=== PATIENT | female | born 1955 | race Caucasian/White ===

== ENCOUNTER 2017-04-05 15:04 | Inpatient (IN) | payer OTHER ==
[~2017-04-05] VITALS: Ht 162.6 cm; Wt 54.3 kg
[~2017-04-05 15:04] MED LIST: BACL10TA PO; CARB-114 PO
[2017-04-05 17:01] LABS: BASOPHILS # (AUTO) 0.02 K/uL (0.00-0.20); BASOPHILS % (AUTO) 0.2 % (0.0-2.0); EOSINOPHILS % (AUTO) 0.04 % (1.0-6.0); HEMATOCRIT 41.4 % (36-46); HEMOGLOBIN 14.1 g/dL (12.0-16.0); LYMPHOCYTES # (AUTO) 1.3 K/uL (1.0-4.8); LYMPHOCYTES % (AUTO) 11.4 % (22.0-44.0); MEAN CORPUSCULAR HEMOGLOBIN 32.3 pg (26.0-34.0); MEAN CORPUSCULAR HGB CONC 34.1 G/dL (31.0-37.0); MEAN CORPUSCULAR VOLUME 95 fL (80-100); MONOCYTES % (AUTO) 8.5 % (2.0-9.0); NEUTROPHILS # (AUTO) 8.9 K/uL (1.8-7.7); NEUTROPHILS % (AUTO) 79.9 % (40.0-70.0); PLATELET COUNT (AUTO) 250 K/uL (150-450); RED BLOOD CELL COUNT(AUTO) 4.36 MIL/uL (4.00-5.20); RED CELL DISTRIBUTION WIDTH 12.9 % (11.5-14.5); WHITE BLOOD COUNT (AUTO) 11.2 K/uL (4.5-11.0)
[2017-04-05 17:02] LABS: ANION GAP 10 mmol/L (8-16); CALCIUM, TOTAL 9.1 mg/dL (8.8-10.5); CARBON DIOXIDE 26 mmol/L (22-29); CHLORIDE 103 mmol/L (98-107); CREATININE 0.56 mg/dL (0.60-1.30); GLOMERULAR FILTR. RATE CALC > 60 mL/min (>60); SODIUM SERUM 139 mmol/L (136-145); UREA NITROGEN, BLOOD 26 mg/dL (7-18)
[2017-04-05 17:32] LABS: B-TYPE NATRIURETIC PEPTIDE 153 pg/mL (0-100)
[2017-04-05 17:36] LABS: ALANINE AMINOTRANSFERASE 7 U/L (12-78); ALBUMIN 3.8 g/dL (3.4-5.0); ASPARTATE AMINOTRANSFERASE 91 U/L (15-37); BILIRUBIN,TOTAL 1.1 mg/dL (0.1-1.0); CREATINE KINASE MB 96.3 ng/mL (0-5); TOTAL PROTEIN, SERUM 7.1 g/dL (6.4-8.2)
[2017-04-05 17:37] LABS: CREATINE KINASE, TOTAL 3959 U/L (26-192)
[2017-04-05] MEDS ORDERED: ASPIRIN 325 MG TABLET PO ONE (18:30)
[2017-04-05] MEDS ORDERED: SODIUM CHLORIDE 0.9% 1,000 ML IV ONE ×2 (18:30)
[2017-04-05] MEDS ORDERED: 0.9% SODIUM CHLORIDE 10 ML SYRINGE IVP PRN (18:45)
[2017-04-05] MEDS ORDERED: ONDANSETRON HCL 4 MG/2 ML VIAL IVP PRN (18:45)
[2017-04-05] MEDS ORDERED: ACETAMINOPHEN 325 MG TABLET PO PRN (18:45)
[2017-04-05] MEDS ORDERED: POTASSIUM CHLORIDE 10% 40 MEQ/30 ML LIQUID UDCUP PO ONE (20:30)
[2017-04-05] MEDS ORDERED: POTASSIUM CHL 40 MEQ/D5-0.45NS 1,000 ML IV ONE (20:30)
[2017-04-05 20:37] LABS: APPEARANCE,URINE CLOUDY (CLEAR); GLUCOSE, URINE (UA) NEGATIVE (NEGATIVE); KETONES,URINE TRACE mg/dL (NEGATIVE); LEUKOCYTE ESTERASE ,URINE LARGE (NEGATIVE); OCCULT BLOOD,URINE LARGE (NEGATIVE); PROTEIN,URINE SEE CONFIRM (NEGATIVE)
[2017-04-05 20:52] LABS: ADD UA MICROSCOPIC YES; SULFOSALICYLIC ACID,URINE 1+ (Negative); WBC,URINE 26-50 /HPF (0-5)
[2017-04-05 20:55] LABS: SQUAMOUS EPITHELIAL CELL,UR Moderate /LPF (None Seen)
[2017-04-05] MEDS: DOCUSATE SODIUM 100 MG CAPSULE PO SCH (21:00)
[2017-04-05] MEDS ORDERED: MAGNESIUM HYDROXIDE SUSPENSION 30 ML UDCUP PO PRN (21:00)
[2017-04-05] MEDS ORDERED: ALBUTEROL SULFATE 2.5 MG/0.5 ML NEB SOLUTION NEB PRN (21:00)
[2017-04-05 21:02] VITALS: BP 114/78
[2017-04-05] MEDS ORDERED: POTASSIUM CHLORIDE 20 MEQ ER TABLET PO PRN (21:15)
[2017-04-05] MEDS: OxyCODONE HCL/ACETAMINOPHEN 5-325 MG TABLET PO PRN (22:21)
[2017-04-05] MEDS: HEPARIN SODIUM,PORCINE 5,000 UNITS/ML VIAL SQ SCH (22:22)
[2017-04-05] MEDS ORDERED: CARBIDOPA/LEVODOPA 25-100 MG TABLET PO ONE (22:30)
[2017-04-05] MEDS: SODIUM CHLORIDE 0.9% 1,000 ML IV SCH (23:28)
[2017-04-05] MEDS: CefTRIAXone 1 GM/DEXTROSE 50 ML IV SCH (23:37)
[2017-04-05 23:39] VITALS: BP 117/69
[2017-04-06] MEDS ORDERED: PNEUMOCOCCAL VACCINE POLYVALENT 0.5 ML VIAL [PPSV23] IM ONE (01:30)
[2017-04-06 04:22] VITALS: BP 106/62
[2017-04-06 05:30] LABS: BASOPHILS # (AUTO) 0.04 K/uL (0.00-0.20); BASOPHILS % (AUTO) 0.4 % (0.0-2.0); EOSINOPHILS # (AUTO) 0.04 K/uL (0.00-0.70); EOSINOPHILS % (AUTO) 0.46 % (1.0-6.0); HEMATOCRIT 34.4 % (36-46); HEMOGLOBIN 11.7 g/dL (12.0-16.0); LYMPHOCYTES # (AUTO) 1.4 K/uL (1.0-4.8); LYMPHOCYTES % (AUTO) 14.2 % (22.0-44.0); MEAN CORPUSCULAR HEMOGLOBIN 32.7 pg (26.0-34.0); MEAN CORPUSCULAR HGB CONC 33.9 G/dL (31.0-37.0); MEAN CORPUSCULAR VOLUME 96 fL (80-100); MONOCYTES # (AUTO) 0.8 K/uL (0.1-1.0); MONOCYTES % (AUTO) 8.3 % (2.0-9.0); NEUTROPHILS # (AUTO) 7.3 K/uL (1.8-7.7); NEUTROPHILS % (AUTO) 76.7 % (40.0-70.0); PLATELET COUNT (AUTO) 202 K/uL (150-450); RED BLOOD CELL COUNT(AUTO) 3.58 MIL/uL (4.00-5.20); WHITE BLOOD COUNT (AUTO) 9.5 K/uL (4.5-11.0)
[2017-04-06 06:13] LABS: ALANINE AMINOTRANSFERASE 20 U/L (12-78); ALBUMIN 2.8 g/dL (3.4-5.0); ANION GAP 7 mmol/L (8-16); ASPARTATE AMINOTRANSFERASE 215 U/L (15-37); BILIRUBIN,TOTAL 1.1 mg/dL (0.1-1.0); CALCIUM, TOTAL 7.8 mg/dL (8.8-10.5); CARBON DIOXIDE 25 mmol/L (22-29); CHLORIDE 108 mmol/L (98-107); CREATINE KINASE MB 56.3 ng/mL (0-5); CREATININE 0.47 mg/dL (0.60-1.30); GLOMERULAR FILTR. RATE CALC > 60 mL/min (>60); POTASSIUM 3.6 mmol/L (3.5-5.1); SODIUM SERUM 140 mmol/L (136-145); TOTAL PROTEIN, SERUM 5.5 g/dL (6.4-8.2); UREA NITROGEN, BLOOD 16 mg/dL (7-18)
[2017-04-06 06:14] LABS: CREATINE KINASE, TOTAL 2916 U/L (26-192)
[2017-04-06 07:56] VITALS: BP 124/64
[2017-04-06] MEDS: ASPIRIN 81 MG CHEWABLE TABLET PO SCH (08:21)
[2017-04-06] MEDS: MULTIVITAMINS WITH MINERALS, THERAPEUTIC TABLET PO SCH (08:21)
[2017-04-06] MEDS: DOCUSATE SODIUM 100 MG CAPSULE PO SCH ×2 (08:22→20:09)
[2017-04-06] MEDS: OxyCODONE HCL/ACETAMINOPHEN 5-325 MG TABLET PO PRN ×2 (08:22→13:12)
[2017-04-06] MEDS: HEPARIN SODIUM,PORCINE 5,000 UNITS/ML VIAL SQ SCH ×2 (08:23→20:10)
[2017-04-06] MEDS: CARBIDOPA/LEVODOPA 25-100 MG TABLET PO SCH ×3 (08:23→20:10)
[2017-04-06] MEDS: PANTOPRAZOLE SODIUM 40 MG DR TABLET PO SCH (08:23)
[2017-04-06] MEDS: POTASSIUM CHL 10 MEQ/WATER 50 ML IV PRN ×3 (08:33→13:08)
[2017-04-06 11:34] VITALS: BP 93/67
[2017-04-06 15:29] VITALS: BP 107/50
[2017-04-06] MEDS: SODIUM CHLORIDE 0.9% 1,000 ML IV SCH (15:31)
[2017-04-06 16:21] LABS: POTASSIUM 4.3 mmol/L (3.5-5.1)
[2017-04-06] MEDS: BACLOFEN 10 MG TABLET PO SCH ×2 (16:26→20:09)
[2017-04-06 19:29] VITALS: BP 95/52
[2017-04-06 20:01] LABS: THYROID STIMULATING HORMONE 5.39 uIU/mL (0.36-3.74)
[2017-04-06] MEDS: CefTRIAXone 1 GM/DEXTROSE 50 ML IV SCH (21:49)
[2017-04-06 23:47] VITALS: BP 94/52
[2017-04-07] MEDS: ACETAMINOPHEN 325 MG TABLET PO PRN (00:05)
[2017-04-07] MEDS: SODIUM CHLORIDE 0.9% 1,000 ML IV SCH ×2 (00:05→14:18)
[2017-04-07 04:29] VITALS: BP 102/52
[2017-04-07 06:52] LABS: BASOPHILS % (AUTO) 0.8 % (0.0-2.0); HEMATOCRIT 34.7 % (36-46); HEMOGLOBIN 11.5 g/dL (12.0-16.0); LYMPHOCYTES # (AUTO) 2.8 K/uL (1.0-4.8); LYMPHOCYTES % (AUTO) 38.8 % (22.0-44.0); MEAN CORPUSCULAR HEMOGLOBIN 32.1 pg (26.0-34.0); MEAN CORPUSCULAR HGB CONC 33.1 G/dL (31.0-37.0); MEAN CORPUSCULAR VOLUME 97 fL (80-100); MONOCYTES # (AUTO) 0.7 K/uL (0.1-1.0); MONOCYTES % (AUTO) 9.8 % (2.0-9.0); NEUTROPHILS # (AUTO) 3.5 K/uL (1.8-7.7); NEUTROPHILS % (AUTO) 48.6 % (40.0-70.0); PLATELET COUNT (AUTO) 175 K/uL (150-450); RED BLOOD CELL COUNT(AUTO) 3.58 MIL/uL (4.00-5.20); RED CELL DISTRIBUTION WIDTH 13.5 % (11.5-14.5); WHITE BLOOD COUNT (AUTO) 7.2 K/uL (4.5-11.0)
[2017-04-07 07:32] VITALS: BP 105/69
[2017-04-07 07:54] LABS: CREATINE KINASE MB 10.2 ng/mL (0-5)
[2017-04-07] MEDS: CARBIDOPA/LEVODOPA 25-100 MG TABLET PO SCH ×3 (08:47→20:44)
[2017-04-07] MEDS: MULTIVITAMINS WITH MINERALS, THERAPEUTIC TABLET PO SCH (08:47)
[2017-04-07] MEDS: ASPIRIN 81 MG CHEWABLE TABLET PO SCH (08:47)
[2017-04-07] MEDS: DOCUSATE SODIUM 100 MG CAPSULE PO SCH ×2 (08:47→20:44)
[2017-04-07] MEDS: PANTOPRAZOLE SODIUM 40 MG DR TABLET PO SCH (08:47)
[2017-04-07] MEDS: HEPARIN SODIUM,PORCINE 5,000 UNITS/ML VIAL SQ SCH ×2 (08:48→20:44)
[2017-04-07] MEDS: BACLOFEN 10 MG TABLET PO SCH ×3 (08:48→20:44)
[2017-04-07 11:02] VITALS: BP 111/68
[2017-04-07] MEDS: OxyCODONE HCL/ACETAMINOPHEN 5-325 MG TABLET PO PRN (12:46)
[2017-04-07 15:50] VITALS: BP 119/72
[2017-04-07 15:55] LABS: ANION GAP 5 mmol/L (8-16); CALCIUM, TOTAL 7.9 mg/dL (8.8-10.5); CARBON DIOXIDE 29 mmol/L (22-29); CHLORIDE 110 mmol/L (98-107); CREATININE 0.51 mg/dL (0.60-1.30); GLOMERULAR FILTR. RATE CALC > 60 mL/min (>60); POTASSIUM 4.3 mmol/L (3.5-5.1); SODIUM SERUM 144 mmol/L (136-145); UREA NITROGEN, BLOOD 9 mg/dL (7-18)
[2017-04-07 16:01] LABS: ALANINE AMINOTRANSFERASE 29 U/L (12-78); ALBUMIN 2.6 g/dL (3.4-5.0); ASPARTATE AMINOTRANSFERASE 76 U/L (15-37); BILIRUBIN,TOTAL 0.2 mg/dL (0.1-1.0); TOTAL PROTEIN, SERUM 5.3 g/dL (6.4-8.2)
[2017-04-07 20:10] VITALS: BP 120/82
[2017-04-07] MEDS: CefTRIAXone 1 GM/DEXTROSE 50 ML IV SCH (21:00)
[2017-04-07 23:16] VITALS: BP 124/79
[2017-04-08] MEDS: SODIUM CHLORIDE 0.9% 1,000 ML IV SCH ×2 (02:51→15:41)
[2017-04-08] MEDS: ACETAMINOPHEN 325 MG TABLET PO PRN ×2 (02:55→14:59)
[2017-04-08 05:48] VITALS: BP 114/72
[2017-04-08 05:54] LABS: EOSINOPHILS % (AUTO) 3.1 % (1.0-6.0); HEMATOCRIT 33.9 % (36-46); HEMOGLOBIN 11.3 g/dL (12.0-16.0); LYMPHOCYTES # (AUTO) 2.1 K/uL (1.0-4.8); LYMPHOCYTES % (AUTO) 40.3 % (22.0-44.0); MEAN CORPUSCULAR HEMOGLOBIN 32.5 pg (26.0-34.0); MEAN CORPUSCULAR HGB CONC 33.4 G/dL (31.0-37.0); MEAN CORPUSCULAR VOLUME 97 fL (80-100); MONOCYTES # (AUTO) 0.4 K/uL (0.1-1.0); MONOCYTES % (AUTO) 8.1 % (2.0-9.0); NEUTROPHILS # (AUTO) 2.4 K/uL (1.8-7.7); NEUTROPHILS % (AUTO) 47.5 % (40.0-70.0); RED BLOOD CELL COUNT(AUTO) 3.49 MIL/uL (4.00-5.20); RED CELL DISTRIBUTION WIDTH 13.7 % (11.5-14.5); WHITE BLOOD COUNT (AUTO) 5.1 K/uL (4.5-11.0)
[2017-04-08 06:22] LABS: CREATINE KINASE MB 3.6 ng/mL (0-5); CREATINE KINASE, TOTAL 758 U/L (26-192)
[2017-04-08 07:13] LABS: PLATELET COUNT (AUTO) 203 K/uL (150-450)
[2017-04-08 07:49] VITALS: BP 129/76
[2017-04-08] MEDS: PANTOPRAZOLE SODIUM 40 MG DR TABLET PO SCH (08:40)
[2017-04-08] MEDS: BACLOFEN 10 MG TABLET PO SCH ×2 (08:40→14:57)
[2017-04-08] MEDS: HEPARIN SODIUM,PORCINE 5,000 UNITS/ML VIAL SQ SCH (08:41)
[2017-04-08] MEDS: CARBIDOPA/LEVODOPA 25-100 MG TABLET PO SCH ×2 (08:41→14:57)
[2017-04-08] MEDS: MULTIVITAMINS WITH MINERALS, THERAPEUTIC TABLET PO SCH (08:41)
[2017-04-08] MEDS: DOCUSATE SODIUM 100 MG CAPSULE PO SCH (08:41)
[2017-04-08] MEDS: ASPIRIN 81 MG CHEWABLE TABLET PO SCH (08:41)
[2017-04-08] MEDS: OxyCODONE HCL/ACETAMINOPHEN 5-325 MG TABLET PO PRN (09:41)
[2017-04-08 11:52] VITALS: BP 115/78
[2017-04-08] MEDS ORDERED: BISACODYL 10 MG RECTAL RECTAL SUPPOSITORY PR PRN (13:30)
[2017-04-08] MEDS ORDERED: ASPI81 PO (15:28)
[2017-04-08 16:11] VITALS: BP 122/72
[2017-04-09] MEDS ORDERED: DIAZ2 PO (11:00)
== END 2017-04-08 18:50 | disposition home or self-care (01) | DRG 351 ==
LOC: EMS 15:06 → 5S 18:39
PROVIDERS: ADMIT Internal Medicine; ATTEND Internal Medicine
PROC: 3E0234Z Introduction of Serum, Toxoid and Vaccine into Muscle, Percutaneous Approach (ICD-10-PCS; principal; 2017-04-06)
DX: M62.82 Rhabdomyolysis (principal); E43 Unspecified severe protein-calorie malnutrition; G20 Parkinson's disease; N39.0 Urinary tract infection, site not specified; F15.10 Other stimulant abuse, uncomplicated; E86.0 Dehydration; F20.9 Schizophrenia, unspecified; I10 Essential (primary) hypertension; Z86.73 Personal history of transient ischemic attack (TIA), and cerebral infarction without residual deficits; Z99.3 Dependence on wheelchair; G89.29 Other chronic pain; R00.1 Bradycardia, unspecified; Z79.899 Other long term (current) drug therapy; W01.0XXA Fall on same level from slipping, tripping and stumbling without subsequent striking against object, initial encounter; Y93.89 Activity, other specified; Y92.098 Other place in other non-institutional residence as the place of occurrence of the external cause; Y99.8 Other external cause status; Z23 Encounter for immunization; Z68.20 Body mass index [BMI] 20.0-20.9, adult
CPT/HCPCS: 84132; 84443; 87086; 90471; 92610; 93005; 96360; 96361; 99285; G0480; J0696; J1644; J3480; J7030

== ENCOUNTER 2017-11-06 14:43 | Inpatient (IN) | payer OTHER ==
[~2017-11-06] VITALS: Ht 172.7 cm; Wt 44.3 kg
[~2017-11-06 14:43] MED LIST changes: +ASPI81 PO; +DIAZ2 PO
[2017-11-06] MEDS ORDERED: ENOX40DI9 SQ (16:36)
[2017-11-06] MEDS ORDERED: LACT30L PO (16:36)
[2017-11-06] MEDS ORDERED: LIDOCAINE PATCH TD (16:36)
[2017-11-06] MEDS ORDERED: FERR-89 PO (16:36)
[2017-11-06] MEDS ORDERED: DIVA125SP PO (16:36)
[2017-11-06 16:59] LABS: BASOPHILS % (AUTO) 0.7 % (0.0-2.0); EOSINOPHILS % (AUTO) 2.7 % (1.0-6.0); HEMATOCRIT 31.6 % (36-46); HEMOGLOBIN 10.7 g/dL (12.0-16.0); LYMPHOCYTES # (AUTO) 2.1 K/uL (1.0-4.8); LYMPHOCYTES % (AUTO) 25.4 % (22.0-44.0); MEAN CORPUSCULAR HEMOGLOBIN 30.6 pg (26.0-34.0); MEAN CORPUSCULAR HGB CONC 33.9 G/dL (31.0-37.0); MEAN CORPUSCULAR VOLUME 90 fL (80-100); MONOCYTES # (AUTO) 0.6 K/uL (0.1-1.0); MONOCYTES % (AUTO) 7.6 % (2.0-9.0); NEUTROPHILS # (AUTO) 5.2 K/uL (1.8-7.7); NEUTROPHILS % (AUTO) 63.6 % (40.0-70.0); PLATELET COUNT (AUTO) 492 K/uL (150-450); RED CELL DISTRIBUTION WIDTH 16.5 % (11.5-14.5)
[2017-11-06 17:08] LABS: ANION GAP 7 mmol/L (8-16); CALCIUM, TOTAL 8.6 mg/dL (8.8-10.5); CARBON DIOXIDE 28 mmol/L (22-29); CHLORIDE 102 mmol/L (98-107); CREATININE 0.35 mg/dL (0.60-1.30); GLOMERULAR FILTR. RATE CALC > 60 mL/min (>60); GLUCOSE,RANDOM 98 mg/dL (70-110); POTASSIUM 4.1 mmol/L (3.5-5.1); SODIUM SERUM 137 mmol/L (136-145); UREA NITROGEN, BLOOD 21 mg/dL (7-18)
[2017-11-06 17:14] LABS: ALANINE AMINOTRANSFERASE 7 U/L (12-78); ALBUMIN 2.6 g/dL (3.4-5.0); ALKALINE PHOSPHATASE 80 U/L (46-116); ASPARTATE AMINOTRANSFERASE 9 U/L (15-37); BILIRUBIN,TOTAL 0.2 mg/dL (0.1-1.0); C-REACTIVE PROTEIN QUANT 2.51 mg/dL (0.00-0.30)
[2017-11-06] MEDS ORDERED: VANCOMYCIN HCL 1 GM/D5% WATER 200 ML IV ONE (17:15)
[2017-11-06] MEDS ORDERED: ONDANSETRON HCL 4 MG/2 ML VIAL IVP ONE (17:15)
[2017-11-06] MEDS ORDERED: MORPHINE SULFATE 4 MG/ML SYRINGE IVP ONE (17:15)
[2017-11-06 18:11] LABS: VALPROIC ACID < 3 mcg/mL (50-100)
[2017-11-06] MEDS ORDERED: MAGNESIUM HYDROXIDE SUSPENSION 30 ML UDCUP PO PRN (21:00)
[2017-11-06] MEDS ORDERED: ALBUTEROL SULFATE 2.5 MG/0.5 ML NEB SOLUTION NEB PRN (21:00)
[2017-11-06] MEDS: DOCUSATE SODIUM 100 MG CAPSULE PO SCH ×2 (21:00→22:21)
[2017-11-06 21:15] VITALS: BP 136/84
[2017-11-06] MEDS: MORPHINE SULFATE 4 MG/ML SYRINGE IVP PRN (22:21)
[2017-11-06] MEDS: HEPARIN SODIUM,PORCINE 5,000 UNITS/ML VIAL SQ SCH (22:21)
[2017-11-06] MEDS ORDERED: SODIUM CHLORIDE 0.9% 500 ML IV ONE (22:36)
[2017-11-06 23:21] VITALS: BP 140/85
[2017-11-07 04:10] VITALS: BP 112/67
[2017-11-07] MEDS: MORPHINE SULFATE 4 MG/ML SYRINGE IVP PRN ×4 (06:49→21:46)
[2017-11-07 08:11] VITALS: BP 104/67
[2017-11-07] MEDS: DOCUSATE SODIUM 100 MG CAPSULE PO SCH ×2 (08:49→21:12)
[2017-11-07] MEDS ORDERED: PANTOPRAZOLE SODIUM 40 MG DR TABLET PO SCH (09:00)
[2017-11-07] MEDS: PANTOPRAZOLE SODIUM 40 MG/VIAL IVP SCH (09:02)
[2017-11-07] MEDS: HEPARIN SODIUM,PORCINE 5,000 UNITS/ML VIAL SQ SCH ×2 (09:02→21:12)
[2017-11-07 11:36] VITALS: BP 136/77
[2017-11-07 15:38] VITALS: BP 133/76
[2017-11-07] MEDS ORDERED: SODIUM CHLORIDE 0.9% 1,000 ML IV ONE (17:30)
[2017-11-07] MEDS ORDERED: VANCOMYCIN HCL 1 GM/D5% WATER 200 ML IV ONE (17:30)
[2017-11-07 20:16] VITALS: BP 107/69
[2017-11-07] MEDS: ACETAMINOPHEN 325 MG TABLET PO PRN (21:12)
[2017-11-08 00:06] VITALS: BP 111/68
[2017-11-08] MEDS: MORPHINE SULFATE 4 MG/ML SYRINGE IVP PRN ×5 (01:49→18:55)
[2017-11-08 04:13] VITALS: BP 119/74
[2017-11-08 06:27] LABS: EOSINOPHILS % (AUTO) 3.8 % (1.0-6.0); HEMATOCRIT 32.2 % (36-46); HEMOGLOBIN 10.9 g/dL (12.0-16.0); LYMPHOCYTES # (AUTO) 2.3 K/uL (1.0-4.8); LYMPHOCYTES % (AUTO) 41.5 % (22.0-44.0); MEAN CORPUSCULAR HEMOGLOBIN 30.4 pg (26.0-34.0); MEAN CORPUSCULAR HGB CONC 33.8 G/dL (31.0-37.0); MEAN CORPUSCULAR VOLUME 90 fL (80-100); MONOCYTES # (AUTO) 0.4 K/uL (0.1-1.0); MONOCYTES % (AUTO) 7.1 % (2.0-9.0); NEUTROPHILS # (AUTO) 2.6 K/uL (1.8-7.7); NEUTROPHILS % (AUTO) 46.6 % (40.0-70.0); PLATELET COUNT (AUTO) 465 K/uL (150-450); RED BLOOD CELL COUNT(AUTO) 3.59 MIL/uL (4.00-5.20); RED CELL DISTRIBUTION WIDTH 16.3 % (11.5-14.5)
[2017-11-08 06:52] LABS: ANION GAP 9 mmol/L (8-16); CALCIUM, TOTAL 8.9 mg/dL (8.8-10.5); CARBON DIOXIDE 28 mmol/L (22-29); CHLORIDE 103 mmol/L (98-107); GLOMERULAR FILTR. RATE CALC > 60 mL/min (>60); GLUCOSE,RANDOM 94 mg/dL (70-110); POTASSIUM 3.6 mmol/L (3.5-5.1); SODIUM SERUM 140 mmol/L (136-145); UREA NITROGEN, BLOOD 13 mg/dL (7-18)
[2017-11-08] MEDS ORDERED: VANCOMYCIN HCL 500 MG in DEXTROSE 5%-WATER 100 ML IV SCH ×2 (07:00→20:00)
[2017-11-08 08:11] VITALS: BP 117/78
[2017-11-08] MEDS: DOCUSATE SODIUM 100 MG CAPSULE PO SCH ×2 (08:57→20:34)
[2017-11-08] MEDS: MULTIVITAMINS WITH MINERALS, THERAPEUTIC TABLET PO SCH (08:57)
[2017-11-08] MEDS: PANTOPRAZOLE SODIUM 40 MG/VIAL IVP SCH (08:57)
[2017-11-08] MEDS: ASCORBIC ACID 500 MG TABLET PO SCH (08:58)
[2017-11-08] MEDS: HEPARIN SODIUM,PORCINE 5,000 UNITS/ML VIAL SQ SCH ×2 (08:58→20:39)
[2017-11-08] MEDS: ACETAMINOPHEN 325 MG TABLET PO PRN ×2 (11:41→20:34)
[2017-11-08 11:49] VITALS: BP 108/62
[2017-11-08 14:48] VITALS: BP 123/93
[2017-11-08 19:08] VITALS: BP 137/80
[2017-11-09] VITALS (8 sets, daily range): BP systolic 92–169; BP diastolic 51–103
[2017-11-09] MEDS: MORPHINE SULFATE 4 MG/ML SYRINGE IVP PRN ×4 (00:05→13:09)
[2017-11-09] MEDS ORDERED: CloNIDine HCL 0.1 MG TABLET PO PRN (00:45)
[2017-11-09 01:07] LABS: GLUCOMETER DEV NAME(LOC) 6N 2D; GLUCOSE,POINT OF CARE 114 MG/DL (70-110)
[2017-11-09 06:19] LABS: BASOPHILS % (AUTO) 1.2 % (0.0-2.0); EOSINOPHILS % (AUTO) 1.9 % (1.0-6.0); HEMATOCRIT 33.6 % (36-46); HEMOGLOBIN 11.2 g/dL (12.0-16.0); LYMPHOCYTES # (AUTO) 2.1 K/uL (1.0-4.8); LYMPHOCYTES % (AUTO) 34.3 % (22.0-44.0); MEAN CORPUSCULAR HEMOGLOBIN 30.3 pg (26.0-34.0); MEAN CORPUSCULAR HGB CONC 33.3 G/dL (31.0-37.0); MEAN CORPUSCULAR VOLUME 91 fL (80-100); MONOCYTES # (AUTO) 0.4 K/uL (0.1-1.0); MONOCYTES % (AUTO) 7.2 % (2.0-9.0); NEUTROPHILS # (AUTO) 3.3 K/uL (1.8-7.7); NEUTROPHILS % (AUTO) 55.4 % (40.0-70.0); PLATELET COUNT (AUTO) 465 K/uL (150-450); RED BLOOD CELL COUNT(AUTO) 3.69 MIL/uL (4.00-5.20); RED CELL DISTRIBUTION WIDTH 15.7 % (11.5-14.5)
[2017-11-09 06:38] LABS: ANION GAP 8 mmol/L (8-16); CALCIUM, TOTAL 9.3 mg/dL (8.8-10.5); CARBON DIOXIDE 28 mmol/L (22-29); CHLORIDE 104 mmol/L (98-107); CREATININE 0.36 mg/dL (0.60-1.30); GLOMERULAR FILTR. RATE CALC > 60 mL/min (>60); GLUCOSE,RANDOM 97 mg/dL (70-110); SODIUM SERUM 140 mmol/L (136-145); UREA NITROGEN, BLOOD 17 mg/dL (7-18)
[2017-11-09] MEDS: HEPARIN SODIUM,PORCINE 5,000 UNITS/ML VIAL SQ SCH ×2 (08:22→21:20)
[2017-11-09] MEDS: PANTOPRAZOLE SODIUM 40 MG/VIAL IVP SCH (08:22)
[2017-11-09] MEDS: ASCORBIC ACID 500 MG TABLET PO SCH (09:01)
[2017-11-09] MEDS: MULTIVITAMINS WITH MINERALS, THERAPEUTIC TABLET PO SCH (09:01)
[2017-11-09] MEDS: DOCUSATE SODIUM 100 MG CAPSULE PO SCH ×2 (09:01→21:20)
[2017-11-09] MEDS ORDERED: DIVALPROEX SODIUM 125 MG DR CAPSULE PO SCH (11:00)
[2017-11-09] MEDS ORDERED: HYDROCODONE/ACETAMINOPHEN 5-325 MG TABLET PO ONE (11:15)
[2017-11-09] MEDS: BACLOFEN 10 MG TABLET PO SCH ×2 (11:17→21:20)
[2017-11-09] MEDS: LORazepam 0.5 MG TABLET PO PRN ×2 (11:17→21:54)
[2017-11-09] MEDS: PENICILLIN G POTASSIUM 3 MILUNITS in DEXTROSE 5%-WATER 50 ML IV SCH ×3 (13:09→20:33)
[2017-11-09] MEDS ORDERED: SODIUM CHLORIDE 0.9% 250 ML IV ONE (13:10)
[2017-11-09] MEDS: CARBIDOPA/LEVODOPA 25-100 MG TABLET PO SCH ×2 (15:31→21:20)
[2017-11-09] MEDS: HYDROCODONE/ACETAMINOPHEN 5-325 MG TABLET PO SCH ×2 (17:15→21:19)
[2017-11-10] MEDS: PENICILLIN G POTASSIUM 3 MILUNITS in DEXTROSE 5%-WATER 50 ML IV SCH ×4 (00:45→14:42)
[2017-11-10 04:22] VITALS: BP 135/74
[2017-11-10 06:47] LABS: CALCIUM, TOTAL 9.5 mg/dL (8.8-10.5); CHLORIDE 102 mmol/L (98-107); CREATININE 0.28 mg/dL (0.60-1.30); GLOMERULAR FILTR. RATE CALC > 60 mL/min (>60); GLUCOSE,RANDOM 96 mg/dL (70-110); POTASSIUM 4.1 mmol/L (3.5-5.1); SODIUM SERUM 137 mmol/L (136-145); UREA NITROGEN, BLOOD 11 mg/dL (7-18)
[2017-11-10 06:57] LABS: BASOPHILS % (AUTO) 0.7 % (0.0-2.0); EOSINOPHILS % (AUTO) 3.2 % (1.0-6.0); HEMATOCRIT 38.7 % (36-46); LYMPHOCYTES % (AUTO) 33.1 % (22.0-44.0); MEAN CORPUSCULAR HEMOGLOBIN 30.6 pg (26.0-34.0); MEAN CORPUSCULAR HGB CONC 33.6 G/dL (31.0-37.0); MEAN CORPUSCULAR VOLUME 91 fL (80-100); MONOCYTES # (AUTO) 0.9 K/uL (0.1-1.0); NEUTROPHILS # (AUTO) 2.9 K/uL (1.8-7.7); PLATELET COUNT (AUTO) 469 K/uL (150-450); RED BLOOD CELL COUNT(AUTO) 4.25 MIL/uL (4.00-5.20); RED CELL DISTRIBUTION WIDTH 15.7 % (11.5-14.5)
[2017-11-10 07:09] LABS: ANION GAP 9 mmol/L (8-16); CARBON DIOXIDE 26 mmol/L (22-29)
[2017-11-10 07:22] VITALS: BP 125/80
[2017-11-10] MEDS: CARBIDOPA/LEVODOPA 25-100 MG TABLET PO SCH ×3 (08:24→20:47)
[2017-11-10] MEDS: ASCORBIC ACID 500 MG TABLET PO SCH (08:25)
[2017-11-10] MEDS: BACLOFEN 10 MG TABLET PO SCH ×2 (08:25→20:46)
[2017-11-10] MEDS: DOCUSATE SODIUM 100 MG CAPSULE PO SCH ×2 (08:28→20:46)
[2017-11-10] MEDS: HYDROCODONE/ACETAMINOPHEN 5-325 MG TABLET PO SCH ×3 (08:28→20:46)
[2017-11-10] MEDS: MULTIVITAMINS WITH MINERALS, THERAPEUTIC TABLET PO SCH (08:28)
[2017-11-10] MEDS: PANTOPRAZOLE SODIUM 40 MG/VIAL IVP SCH (08:28)
[2017-11-10] MEDS ORDERED: GADOBUTROL 1 MMOL/ML 10 ML VIAL IVP ONE (08:28)
[2017-11-10] MEDS: LORazepam 0.5 MG TABLET PO PRN ×3 (08:28→23:27)
[2017-11-10] MEDS: HEPARIN SODIUM,PORCINE 5,000 UNITS/ML VIAL SQ SCH ×2 (08:29→20:46)
[2017-11-10 11:53] VITALS: BP 93/59
[2017-11-10] MEDS ORDERED: SODIUM CHLORIDE 0.9% 250 ML IV ONE (12:00)
[2017-11-10] MEDS: MORPHINE SULFATE 4 MG/ML SYRINGE IVP PRN (14:42)
[2017-11-10 16:38] VITALS: BP 118/72
[2017-11-10] MEDS: CefTRIAXone SODIUM 1 GM in DEXTROSE 5%-WATER 10 ML IV SCH (16:39)
[2017-11-10 20:06] VITALS: BP 95/60
[2017-11-11 00:06] VITALS: BP 111/74
[2017-11-11] MEDS: MORPHINE SULFATE 4 MG/ML SYRINGE IVP PRN ×4 (00:41→19:22)
[2017-11-11] MEDS: ACETAMINOPHEN 325 MG TABLET PO PRN (04:29)
[2017-11-11 04:45] VITALS: BP 147/86
[2017-11-11 08:08] VITALS: BP 112/79
[2017-11-11] MEDS: DOCUSATE SODIUM 100 MG CAPSULE PO SCH ×2 (08:10→19:23)
[2017-11-11] MEDS: PANTOPRAZOLE SODIUM 40 MG/VIAL IVP SCH (08:10)
[2017-11-11] MEDS: MULTIVITAMINS WITH MINERALS, THERAPEUTIC TABLET PO SCH (08:11)
[2017-11-11] MEDS: CARBIDOPA/LEVODOPA 25-100 MG TABLET PO SCH ×3 (08:11→19:23)
[2017-11-11] MEDS: HYDROCODONE/ACETAMINOPHEN 5-325 MG TABLET PO SCH ×4 (08:11→22:59)
[2017-11-11] MEDS: HEPARIN SODIUM,PORCINE 5,000 UNITS/ML VIAL SQ SCH ×2 (08:11→19:22)
[2017-11-11] MEDS: BACLOFEN 10 MG TABLET PO SCH ×2 (08:11→19:23)
[2017-11-11] MEDS: ASCORBIC ACID 500 MG TABLET PO SCH (08:11)
[2017-11-11 11:36] VITALS: BP 98/60
[2017-11-11] MEDS: LORazepam 0.5 MG TABLET PO PRN ×2 (15:10→22:59)
[2017-11-11] MEDS: CefTRIAXone SODIUM 1 GM in DEXTROSE 5%-WATER 10 ML IV SCH (16:23)
[2017-11-11 16:26] VITALS: BP 128/72
[2017-11-11 20:11] VITALS: BP 108/64
[2017-11-12 00:23] VITALS: BP 157/95
[2017-11-12] MEDS: MORPHINE SULFATE 4 MG/ML SYRINGE IVP PRN ×5 (01:33→21:51)
[2017-11-12 05:06] VITALS: BP 119/74
[2017-11-12 07:37] VITALS: BP 134/88
[2017-11-12] MEDS: ASCORBIC ACID 500 MG TABLET PO SCH (11:41)
[2017-11-12] MEDS: CARBIDOPA/LEVODOPA 25-100 MG TABLET PO SCH ×3 (11:41→19:45)
[2017-11-12] MEDS: DOCUSATE SODIUM 100 MG CAPSULE PO SCH ×2 (11:42→19:45)
[2017-11-12] MEDS: PANTOPRAZOLE SODIUM 40 MG/VIAL IVP SCH (11:42)
[2017-11-12] MEDS: HEPARIN SODIUM,PORCINE 5,000 UNITS/ML VIAL SQ SCH ×2 (11:42→19:45)
[2017-11-12] MEDS: MULTIVITAMINS WITH MINERALS, THERAPEUTIC TABLET PO SCH (11:42)
[2017-11-12] MEDS: HYDROCODONE/ACETAMINOPHEN 5-325 MG TABLET PO SCH ×3 (11:43→19:45)
[2017-11-12] MEDS: BACLOFEN 10 MG TABLET PO SCH ×2 (11:43→19:45)
[2017-11-12] MEDS: CefTRIAXone SODIUM 1 GM in DEXTROSE 5%-WATER 10 ML IV SCH (16:17)
[2017-11-12] MEDS: LORazepam 0.5 MG TABLET PO PRN (16:31)
[2017-11-12 16:37] VITALS: BP 105/62
[2017-11-12 19:00] VITALS: BP 120/69
[2017-11-13] VITALS (7 sets, daily range): BP systolic 96–157; BP diastolic 64–95
[2017-11-13] MEDS: MORPHINE SULFATE 4 MG/ML SYRINGE IVP PRN ×4 (03:30→18:37)
[2017-11-13] MEDS: PANTOPRAZOLE SODIUM 40 MG/VIAL IVP SCH (08:27)
[2017-11-13] MEDS: BACLOFEN 10 MG TABLET PO SCH ×2 (08:27→21:42)
[2017-11-13] MEDS: HEPARIN SODIUM,PORCINE 5,000 UNITS/ML VIAL SQ SCH ×2 (08:28→21:43)
[2017-11-13] MEDS: MULTIVITAMINS WITH MINERALS, THERAPEUTIC TABLET PO SCH (08:28)
[2017-11-13] MEDS: DOCUSATE SODIUM 100 MG CAPSULE PO SCH ×2 (08:28→21:43)
[2017-11-13] MEDS: ASCORBIC ACID 500 MG TABLET PO SCH (08:28)
[2017-11-13] MEDS: CARBIDOPA/LEVODOPA 25-100 MG TABLET PO SCH ×3 (08:35→21:43)
[2017-11-13] MEDS: HYDROCODONE/ACETAMINOPHEN 5-325 MG TABLET PO SCH ×3 (09:54→21:42)
[2017-11-13] MEDS: LORazepam 0.5 MG TABLET PO PRN (11:32)
[2017-11-13] MEDS: DIAZEPAM 5 MG TABLET PO PRN (14:28)
[2017-11-13] MEDS: CefTRIAXone SODIUM 1 GM in DEXTROSE 5%-WATER 10 ML IV SCH (16:40)
[2017-11-14] MEDS: DIAZEPAM 5 MG TABLET PO PRN ×2 (00:22→14:54)
[2017-11-14] MEDS: MORPHINE SULFATE 4 MG/ML SYRINGE IVP PRN ×4 (00:23→14:17)
[2017-11-14 04:10] VITALS: BP 123/76
[2017-11-14 07:00] VITALS: BP 148/90
[2017-11-14] MEDS: HYDROCODONE/ACETAMINOPHEN 5-325 MG TABLET PO SCH ×3 (09:00→22:02)
[2017-11-14] MEDS: HEPARIN SODIUM,PORCINE 5,000 UNITS/ML VIAL SQ SCH ×2 (09:00→20:29)
[2017-11-14] MEDS: CARBIDOPA/LEVODOPA 25-100 MG TABLET PO SCH ×3 (09:00→20:29)
[2017-11-14] MEDS ORDERED: MIDAZOLAM HCL 2 MG/2 ML VIAL ONE (11:57)
[2017-11-14] MEDS ORDERED: FentaNYL CITRATE-PF 100 MCG/2 ML VIAL ONE (11:57)
[2017-11-14] MEDS ORDERED: LIDOCAINE HCL/PF 1% 30 ML VIAL ONE (11:58)
[2017-11-14] MEDS ORDERED: MIDAZOLAM HCL 2 MG/2 ML VIAL IVP ONE (12:48)
[2017-11-14] MEDS ORDERED: FentaNYL CITRATE-PF 100 MCG/2 ML VIAL IVP ONE (12:49)
[2017-11-14] MEDS: PANTOPRAZOLE SODIUM 40 MG/VIAL IVP SCH (14:19)
[2017-11-14] MEDS: MULTIVITAMINS WITH MINERALS, THERAPEUTIC TABLET PO SCH (14:20)
[2017-11-14] MEDS: DOCUSATE SODIUM 100 MG CAPSULE PO SCH ×2 (14:20→20:29)
[2017-11-14] MEDS: ASCORBIC ACID 500 MG TABLET PO SCH (14:20)
[2017-11-14] MEDS: BACLOFEN 10 MG TABLET PO SCH ×2 (14:20→20:29)
[2017-11-14 15:23] LABS: BASOPHILS % (AUTO) 0.6 % (0.0-2.0); EOSINOPHILS % (AUTO) 0.4 % (1.0-6.0); HEMOGLOBIN 12.8 g/dL (12.0-16.0); LYMPHOCYTES # (AUTO) 1.9 K/uL (1.0-4.8); LYMPHOCYTES % (AUTO) 28.4 % (22.0-44.0); MEAN CORPUSCULAR HEMOGLOBIN 30.7 pg (26.0-34.0); MEAN CORPUSCULAR HGB CONC 33.6 G/dL (31.0-37.0); MEAN CORPUSCULAR VOLUME 91 fL (80-100); MONOCYTES # (AUTO) 0.5 K/uL (0.1-1.0); MONOCYTES % (AUTO) 7.6 % (2.0-9.0); NEUTROPHILS # (AUTO) 4.1 K/uL (1.8-7.7); PLATELET COUNT (AUTO) 452 K/uL (150-450); RED BLOOD CELL COUNT(AUTO) 4.16 MIL/uL (4.00-5.20); RED CELL DISTRIBUTION WIDTH 16.1 % (11.5-14.5)
[2017-11-14 15:32] LABS: ANION GAP 5 mmol/L (8-16); CALCIUM, TOTAL 9.2 mg/dL (8.8-10.5); CARBON DIOXIDE 30 mmol/L (22-29); CHLORIDE 99 mmol/L (98-107); CREATININE 0.52 mg/dL (0.60-1.30); GLOMERULAR FILTR. RATE CALC > 60 mL/min (>60); GLUCOSE,RANDOM 138 mg/dL (70-110); POTASSIUM 4.3 mmol/L (3.5-5.1); SODIUM SERUM 134 mmol/L (136-145); UREA NITROGEN, BLOOD 17 mg/dL (7-18)
[2017-11-14 15:37] LABS: ALANINE AMINOTRANSFERASE 19 U/L (12-78); ALBUMIN 3.3 g/dL (3.4-5.0); ALKALINE PHOSPHATASE 75 U/L (46-116); ASPARTATE AMINOTRANSFERASE 16 U/L (15-37); BILIRUBIN,TOTAL 0.3 mg/dL (0.1-1.0); TOTAL PROTEIN, SERUM 7.5 g/dL (6.4-8.2)
[2017-11-14 15:54] VITALS: BP 145/83
[2017-11-14] MEDS: CefTRIAXone SODIUM 1 GM in DEXTROSE 5%-WATER 10 ML IV SCH (16:57)
[2017-11-14 20:16] VITALS: BP 175/72
[2017-11-14 20:29] VITALS: BP 118/74
[2017-11-14 23:54] VITALS: BP 144/89
[2017-11-15] MEDS: DIAZEPAM 5 MG TABLET PO PRN ×3 (00:04→16:18)
[2017-11-15 04:09] VITALS: BP 129/77
[2017-11-15] MEDS: MORPHINE SULFATE 4 MG/ML SYRINGE IVP PRN ×3 (04:51→15:07)
[2017-11-15 05:59] LABS: BASOPHILS % (AUTO) 0.9 % (0.0-2.0); EOSINOPHILS % (AUTO) 1.8 % (1.0-6.0); HEMATOCRIT 37.9 % (36-46); HEMOGLOBIN 12.4 g/dL (12.0-16.0); LYMPHOCYTES # (AUTO) 2.6 K/uL (1.0-4.8); MEAN CORPUSCULAR HEMOGLOBIN 30.1 pg (26.0-34.0); MEAN CORPUSCULAR HGB CONC 32.8 G/dL (31.0-37.0); MEAN CORPUSCULAR VOLUME 92 fL (80-100); MONOCYTES # (AUTO) 0.6 K/uL (0.1-1.0); MONOCYTES % (AUTO) 8.7 % (2.0-9.0); NEUTROPHILS # (AUTO) 3.7 K/uL (1.8-7.7); NEUTROPHILS % (AUTO) 51.6 % (40.0-70.0); PLATELET COUNT (AUTO) 434 K/uL (150-450); RED BLOOD CELL COUNT(AUTO) 4.12 MIL/uL (4.00-5.20); RED CELL DISTRIBUTION WIDTH 16.4 % (11.5-14.5)
[2017-11-15 06:21] LABS: ALANINE AMINOTRANSFERASE 7 U/L (12-78); ALBUMIN 3.2 g/dL (3.4-5.0); ALKALINE PHOSPHATASE 77 U/L (46-116); ANION GAP 9 mmol/L (8-16); ASPARTATE AMINOTRANSFERASE 14 U/L (15-37); BILIRUBIN,TOTAL 0.3 mg/dL (0.1-1.0); CALCIUM, TOTAL 9.3 mg/dL (8.8-10.5); CARBON DIOXIDE 28 mmol/L (22-29); CHLORIDE 100 mmol/L (98-107); CREATININE 0.44 mg/dL (0.60-1.30); GLOMERULAR FILTR. RATE CALC > 60 mL/min (>60); GLUCOSE,RANDOM 95 mg/dL (70-110); POTASSIUM 3.9 mmol/L (3.5-5.1); SODIUM SERUM 137 mmol/L (136-145); TOTAL PROTEIN, SERUM 7.5 g/dL (6.4-8.2); UREA NITROGEN, BLOOD 22 mg/dL (7-18)
[2017-11-15 08:37] VITALS: BP 125/86
[2017-11-15] MEDS: DOCUSATE SODIUM 100 MG CAPSULE PO SCH (09:05)
[2017-11-15] MEDS: PANTOPRAZOLE SODIUM 40 MG/VIAL IVP SCH (09:05)
[2017-11-15] MEDS: BACLOFEN 10 MG TABLET PO SCH (09:06)
[2017-11-15] MEDS: ASCORBIC ACID 500 MG TABLET PO SCH (09:07)
[2017-11-15] MEDS: CARBIDOPA/LEVODOPA 25-100 MG TABLET PO SCH ×2 (09:07→15:05)
[2017-11-15] MEDS: HYDROCODONE/ACETAMINOPHEN 5-325 MG TABLET PO SCH ×2 (09:08→15:05)
[2017-11-15] MEDS: MULTIVITAMINS WITH MINERALS, THERAPEUTIC TABLET PO SCH (09:09)
[2017-11-15] MEDS: HEPARIN SODIUM,PORCINE 5,000 UNITS/ML VIAL SQ SCH (09:09)
[2017-11-15 13:04] VITALS: BP 107/58
[2017-11-15] MEDS: CefTRIAXone SODIUM 1 GM in DEXTROSE 5%-WATER 10 ML IV SCH (15:06)
== END 2017-11-15 16:45 | disposition home or self-care (01) | DRG 344 ==
LOC: EMS 14:44 → 6N 19:11
PROVIDERS: ADMIT Internal Medicine; ATTEND Internal Medicine
PROC: 0QB13ZX Excision of Sacrum, Percutaneous Approach, Diagnostic (ICD-10-PCS; principal; 2017-11-14)
DX: M46.28 Osteomyelitis of vertebra, sacral and sacrococcygeal region (principal); K63.1 Perforation of intestine (nontraumatic); E43 Unspecified severe protein-calorie malnutrition; L89.154 Pressure ulcer of sacral region, stage 4; G20 Parkinson's disease; F03.90 Unspecified dementia, unspecified severity, without behavioral disturbance, psychotic disturbance, mood disturbance, and anxiety; R62.7 Adult failure to thrive; I10 Essential (primary) hypertension; F20.9 Schizophrenia, unspecified; F15.90 Other stimulant use, unspecified, uncomplicated; B19.20 Unspecified viral hepatitis C without hepatic coma; L03.90 Cellulitis, unspecified; B18.2 Chronic viral hepatitis C; Z87.01 Personal history of pneumonia (recurrent); Z87.898 Personal history of other specified conditions; Z90.710 Acquired absence of both cervix and uterus; Z85.41 Personal history of malignant neoplasm of cervix uteri
CPT/HCPCS: 72197; 73521; 77012; 82962; 83735; 86140; 87040; 87070; 87081; 87147; 87205; 88307; 88311; 92610; 96365; 96366; 96375; 99285; A9585; C9113; J0696; J1644; J2250; J2270; J2405; J2540; J3010; J3370; J3490; J7030; J7040; J7050; J7060

== ENCOUNTER → 2018-01-07 | Outpatient (CLI) | payer OTHER ==
[~2018-01-07] MED LIST changes: -ASPI81 PO; +DIVA125SP PO; +ENOX40DI9 SQ; +FERR-89 PO; +GADOBUTROL 1 MMOL/ML 10 ML VIAL IVP ONE; +LACT30L PO; +LIDOCAINE PATCH TD
== END | disposition home or self-care (01) ==
LOC: RADMN 10:44
PROVIDERS: ATTEND General Practice
DX: M46.28 Osteomyelitis of vertebra, sacral and sacrococcygeal region (principal); L89.159 Pressure ulcer of sacral region, unspecified stage
CPT/HCPCS: 72197; A9585

== ENCOUNTER → 2018-04-08 | Outpatient (CLI) | payer OTHER | END | disposition home or self-care (01) | LOC: RADMN 09:59 | PROVIDERS: ATTEND General Practice | DX: M16.0 Bilateral primary osteoarthritis of hip (principal); M86.8X8 Other osteomyelitis, other site | CPT/HCPCS: 72197; A9585 ==

== ENCOUNTER 2018-11-24 15:41 | Inpatient (IN) | payer OTHER ==
[~2018-11-24] VITALS: Ht 167.6 cm; Wt 70.4 kg
[~2018-11-24 15:41] MED LIST changes: +ACET-784 PO; +ASCO500 PO; +AUD NEB; +BISA10S PR; -CARB-114 PO; +CARB-38 PO; +CLON-570 PO; +COLL30OI TP; -DIVA125SP PO; +DSS100 PO; -ENOX40DI9 SQ; +FE PR; -FERR-89 PO; -GADOBUTROL 1 MMOL/ML 10 ML VIAL IVP ONE; +HYDR-309 PO; -LACT30L PO; -LIDOCAINE PATCH TD; +MOM30 PO; +MULT-264 PO; +PANT40TA25 PO; +QUET25TA PO; +SACC250C3 PO; +SIME80 PO; +VITAD1000 PO
[2018-11-24] MEDS ORDERED: DIAZ5 PO (17:14)
[2018-11-24] MEDS ORDERED: RANI150T7 PO (17:14)
[2018-11-24] MEDS ORDERED: SACC250C3 PO (17:14)
[2018-11-24] MEDS ORDERED: CARB-102 PO (17:14)
[2018-11-24] MEDS ORDERED: ASPI-1182 PO (17:14)
[2018-11-24] MEDS ORDERED: COLL30OI TP (17:14)
[2018-11-24] MEDS ORDERED: PIMA34CA PO (17:14)
[2018-11-24 17:15] LABS: BASOPHILS % (AUTO) 0.8 % (0.0-2.0); EOSINOPHILS % (AUTO) 1.9 % (1.0-6.0); HEMATOCRIT 38.9 % (36-46); HEMOGLOBIN 13.4 g/dL (12.0-16.0); LYMPHOCYTES # (AUTO) 2.8 K/uL (1.0-4.8); LYMPHOCYTES % (AUTO) 43.6 % (22.0-44.0); MEAN CORPUSCULAR HEMOGLOBIN 33.9 pg (26.0-34.0); MEAN CORPUSCULAR HGB CONC 34.5 G/dL (31.0-37.0); MEAN CORPUSCULAR VOLUME 98 fL (80-100); MONOCYTES # (AUTO) 0.4 K/uL (0.1-1.0); MONOCYTES % (AUTO) 6.9 % (2.0-9.0); NEUTROPHILS % (AUTO) 46.8 % (40.0-70.0); PLATELET COUNT (AUTO) 256 K/uL (150-450); RED BLOOD CELL COUNT(AUTO) 3.96 MIL/uL (4.00-5.20); RED CELL DISTRIBUTION WIDTH 12.7 % (11.5-14.5)
[2018-11-24 17:51] LABS: ANION GAP 9 mmol/L (8-16); CALCIUM, TOTAL 9.5 mg/dL (8.8-10.5); CARBON DIOXIDE 28 mmol/L (22-29); CHLORIDE 102 mmol/L (98-107); CREATININE 0.49 mg/dL (0.60-1.30); GLOMERULAR FILTR. RATE CALC > 60 mL/min (>60); GLUCOSE,RANDOM 97 mg/dL (70-110); POTASSIUM 4.3 mmol/L (3.5-5.1); SODIUM SERUM 139 mmol/L (136-145); UREA NITROGEN, BLOOD 37 mg/dL (7-18)
[2018-11-24 17:56] LABS: ALANINE AMINOTRANSFERASE 11 U/L (12-78); ALBUMIN 3.9 g/dL (3.4-5.0); ALKALINE PHOSPHATASE 67 U/L (46-116); ASPARTATE AMINOTRANSFERASE 20 U/L (15-37); BILIRUBIN,TOTAL 0.3 mg/dL (0.1-1.0); LIPASE 97 U/L (73-393); TOTAL PROTEIN, SERUM 7.4 g/dL (6.4-8.2)
[2018-11-24] MEDS ORDERED: CARBIDOPA/LEVODOPA 25-250 MG TABLET PO ONE (18:00)
[2018-11-24 19:18] LABS: APPEARANCE,URINE CLEAR (CLEAR); BILIRUBIN,URINE NEGATIVE (NEGATIVE); GLUCOSE, URINE (UA) NEGATIVE (NEGATIVE); KETONES,URINE NEGATIVE (NEGATIVE); LEUKOCYTE ESTERASE ,URINE TRACE (NEGATIVE); NITRATE,URINE NEGATIVE (NEGATIVE); OCCULT BLOOD,URINE NEGATIVE (NEGATIVE); PROTEIN,URINE NEGATIVE (NEGATIVE); UROBILINOGEN,URINE 0.2 mg/dL (<=1.0)
[2018-11-24 19:22] LABS: AMPHET/METH SCREEN,URINE NEGATIVE (NEGATIVE); BARBITURATE SCREEN, URINE NEGATIVE (NEGATIVE); BENZODIAZEPINES SCREEN,URINE POSITIVE (NEGATIVE); CANNABINOID SCREEN,URINE NEGATIVE (NEGATIVE); COCAINE SCREEN,URINE NEGATIVE (NEGATIVE); METHADONE SCREEN, URINE NEGATIVE (NEGATIVE); OPIATE SCREEN,URINE POSITIVE (NEGATIVE)
[2018-11-24 19:23] LABS: PHENCYCLIDINE SCREEN,URINE NEGATIVE (NEGATIVE)
[2018-11-24 19:31] LABS: BACTERIA,URINE None Seen /HPF (None Seen); RBC,URINE 0-2 /HPF (0-2); SQUAMOUS EPITHELIAL CELL,UR Rare /LPF (None Seen); WBC,URINE 0-2 /HPF (0-5)
[2018-11-24] MEDS ORDERED: ONDANSETRON HCL 4 MG/2 ML VIAL IVP PRN (20:45)
[2018-11-24] MEDS ORDERED: 0.9% SODIUM CHLORIDE 10 ML SYRINGE IVP PRN (20:45)
[2018-11-24] MEDS ORDERED: ACETAMINOPHEN 325 MG TABLET PO PRN ×3 (20:45→21:00)
[2018-11-24] MEDS ORDERED: IPRATROPIUM BROMIDE 0.5 MG/2.5 ML NEB SOLUTION NEB PRN (21:00)
[2018-11-24] MEDS ORDERED: ALBUTEROL SULFATE 2.5 MG/0.5 ML NEB SOLUTION NEB PRN (21:00)
[2018-11-24] MEDS ORDERED: CloNIDine HCL 0.1 MG TABLET PO PRN (21:00)
[2018-11-24] MEDS ORDERED: SIMETHICONE 80 MG CHEWABLE TABLET PO PRN (21:00)
[2018-11-24] MEDS ORDERED: DIAZEPAM 5 MG TABLET PO SCH (21:00)
[2018-11-24] MEDS ORDERED: OxyCODONE HCL/ACETAMINOPHEN 5-325 MG TABLET PO PRN (21:00)
[2018-11-24 21:40] VITALS: BP 108/64
[2018-11-24] MEDS: DOCUSATE SODIUM 100 MG CAPSULE PO SCH (22:06)
[2018-11-24] MEDS: HEPARIN SODIUM,PORCINE 5,000 UNITS/ML VIAL SQ SCH (22:07)
[2018-11-24] MEDS: BACLOFEN 10 MG TABLET PO SCH (23:17)
[2018-11-24] MEDS: CARBIDOPA/LEVODOPA 25-250 MG TABLET PO SCH (23:19)
[2018-11-25 00:43] VITALS: BP 110/87
[2018-11-25 04:00] VITALS: BP 106/62
[2018-11-25 06:50] LABS: BASOPHILS % (AUTO) 0.6 % (0.0-2.0); EOSINOPHILS % (AUTO) 2.4 % (1.0-6.0); HEMATOCRIT 38.8 % (36-46); LYMPHOCYTES # (AUTO) 2.5 K/uL (1.0-4.8); LYMPHOCYTES % (AUTO) 45.5 % (22.0-44.0); MEAN CORPUSCULAR HEMOGLOBIN 33.4 pg (26.0-34.0); MEAN CORPUSCULAR HGB CONC 33.5 G/dL (31.0-37.0); MEAN CORPUSCULAR VOLUME 100 fL (80-100); MONOCYTES # (AUTO) 0.4 K/uL (0.1-1.0); NEUTROPHILS # (AUTO) 2.4 K/uL (1.8-7.7); NEUTROPHILS % (AUTO) 43.5 % (40.0-70.0); PLATELET COUNT (AUTO) 242 K/uL (150-450); RED BLOOD CELL COUNT(AUTO) 3.88 MIL/uL (4.00-5.20); RED CELL DISTRIBUTION WIDTH 12.6 % (11.5-14.5)
[2018-11-25] MEDS: CARBIDOPA/LEVODOPA 25-250 MG TABLET PO SCH ×5 (06:53→21:57)
[2018-11-25] MEDS: HYDROCODONE/ACETAMINOPHEN 5-325 MG TABLET PO SCH ×2 (06:56→13:18)
[2018-11-25] MEDS ORDERED: PNEUMOCOCCAL VACCINE POLYVALENT 0.5 ML VIAL [PPSV23] IM ONE (07:00)
[2018-11-25 07:06] LABS: ALANINE AMINOTRANSFERASE 7 U/L (12-78); ALBUMIN 3.5 g/dL (3.4-5.0); ALKALINE PHOSPHATASE 61 U/L (46-116); ANION GAP 8 mmol/L (8-16); ASPARTATE AMINOTRANSFERASE 14 U/L (15-37); BILIRUBIN,TOTAL 0.4 mg/dL (0.1-1.0); CALCIUM, TOTAL 8.9 mg/dL (8.8-10.5); CARBON DIOXIDE 28 mmol/L (22-29); CHLORIDE 105 mmol/L (98-107); CREATININE 0.45 mg/dL (0.60-1.30); GLOMERULAR FILTR. RATE CALC > 60 mL/min (>60); GLUCOSE,RANDOM 86 mg/dL (70-110); PHOSPHORUS 3.8 mg/dL (2.5-4.9); POTASSIUM 3.8 mmol/L (3.5-5.1); SODIUM SERUM 141 mmol/L (136-145); TOTAL PROTEIN, SERUM 6.9 g/dL (6.4-8.2); UREA NITROGEN, BLOOD 23 mg/dL (7-18)
[2018-11-25 07:59] VITALS: BP 113/65
[2018-11-25] MEDS: CHOLECALCIFEROL (VIT D3) 1,000 UNITS TABLET PO SCH (08:36)
[2018-11-25] MEDS: DIAZEPAM 5 MG TABLET PO SCH ×4 (08:36→20:19)
[2018-11-25] MEDS: HEPARIN SODIUM,PORCINE 5,000 UNITS/ML VIAL SQ SCH ×2 (08:36→20:19)
[2018-11-25] MEDS: ASPIRIN 81 MG EC TABLET PO SCH (08:36)
[2018-11-25] MEDS: BACLOFEN 10 MG TABLET PO SCH ×4 (08:36→21:57)
[2018-11-25] MEDS: ASCORBIC ACID 500 MG TABLET PO SCH (08:36)
[2018-11-25] MEDS: MULTIVITAMINS, THERAPEUTIC TABLET PO SCH (08:36)
[2018-11-25] MEDS: DOCUSATE SODIUM 100 MG CAPSULE PO SCH ×2 (08:36→20:19)
[2018-11-25] MEDS: RANITIDINE HCL 150 MG TABLET PO SCH (08:36)
[2018-11-25 11:42] VITALS: BP 121/86
[2018-11-25] MEDS: MAGNESIUM HYDROXIDE SUSPENSION 30 ML UDCUP PO PRN (12:23)
[2018-11-25 16:00] VITALS: BP 139/83
[2018-11-25 20:42] VITALS: BP 99/67
[2018-11-25] MEDS: MORPHINE SULFATE 2 MG/ML SYRINGE IVP PRN (20:47)
[2018-11-26 00:21] VITALS: BP 103/63
[2018-11-26] MEDS: HYDROCODONE/ACETAMINOPHEN 5-325 MG TABLET PO SCH ×4 (00:50→22:08)
[2018-11-26 05:58] VITALS: BP 111/79
[2018-11-26] MEDS: CARBIDOPA/LEVODOPA 25-250 MG TABLET PO SCH ×5 (06:39→22:08)
[2018-11-26] MEDS: DOCUSATE SODIUM 100 MG CAPSULE PO SCH ×2 (09:35→20:49)
[2018-11-26] MEDS: ASPIRIN 81 MG EC TABLET PO SCH (09:36)
[2018-11-26] MEDS: DIAZEPAM 5 MG TABLET PO SCH ×3 (09:36→20:48)
[2018-11-26] MEDS: ASCORBIC ACID 500 MG TABLET PO SCH (09:36)
[2018-11-26] MEDS: MULTIVITAMINS, THERAPEUTIC TABLET PO SCH (09:36)
[2018-11-26] MEDS: BACLOFEN 10 MG TABLET PO SCH ×4 (09:36→20:48)
[2018-11-26] MEDS: HEPARIN SODIUM,PORCINE 5,000 UNITS/ML VIAL SQ SCH ×2 (09:37→20:49)
[2018-11-26] MEDS: CHOLECALCIFEROL (VIT D3) 1,000 UNITS TABLET PO SCH (09:37)
[2018-11-26] MEDS: RANITIDINE HCL 150 MG TABLET PO SCH (09:37)
[2018-11-26 10:11] VITALS: BP 98/59
[2018-11-26 14:10] VITALS: BP 122/52
[2018-11-26 20:43] VITALS: BP 107/71
[2018-11-27] VITALS (7 sets, daily range): BP systolic 97–112; BP diastolic 63–72
[2018-11-27] MEDS: CARBIDOPA/LEVODOPA 25-250 MG TABLET PO SCH ×5 (06:09→22:28)
[2018-11-27] MEDS: HYDROCODONE/ACETAMINOPHEN 5-325 MG TABLET PO SCH ×3 (06:10→22:28)
[2018-11-27] MEDS: DOCUSATE SODIUM 100 MG CAPSULE PO SCH ×2 (09:32→20:06)
[2018-11-27] MEDS: ASPIRIN 81 MG EC TABLET PO SCH (09:37)
[2018-11-27] MEDS: BACLOFEN 10 MG TABLET PO SCH ×4 (09:37→20:06)
[2018-11-27] MEDS: CHOLECALCIFEROL (VIT D3) 1,000 UNITS TABLET PO SCH (09:37)
[2018-11-27] MEDS: DIAZEPAM 5 MG TABLET PO SCH ×3 (09:37→20:06)
[2018-11-27] MEDS: ASCORBIC ACID 500 MG TABLET PO SCH (09:37)
[2018-11-27] MEDS: HEPARIN SODIUM,PORCINE 5,000 UNITS/ML VIAL SQ SCH ×2 (09:38→20:06)
[2018-11-27] MEDS: RANITIDINE HCL 150 MG TABLET PO SCH (09:38)
[2018-11-27] MEDS: MULTIVITAMINS, THERAPEUTIC TABLET PO SCH (09:39)
[2018-11-28 03:03] VITALS: BP 111/68
[2018-11-28] MEDS: CARBIDOPA/LEVODOPA 25-250 MG TABLET PO SCH ×5 (06:42→22:16)
[2018-11-28] MEDS: HYDROCODONE/ACETAMINOPHEN 5-325 MG TABLET PO SCH ×3 (06:42→22:16)
[2018-11-28 07:45] VITALS: BP 103/63
[2018-11-28] MEDS: DOCUSATE SODIUM 100 MG CAPSULE PO SCH ×2 (08:55→20:36)
[2018-11-28] MEDS: CHOLECALCIFEROL (VIT D3) 1,000 UNITS TABLET PO SCH (08:55)
[2018-11-28] MEDS: BACLOFEN 10 MG TABLET PO SCH ×4 (08:56→20:36)
[2018-11-28] MEDS: ASPIRIN 81 MG EC TABLET PO SCH (08:56)
[2018-11-28] MEDS: RANITIDINE HCL 150 MG TABLET PO SCH (08:56)
[2018-11-28] MEDS: ASCORBIC ACID 500 MG TABLET PO SCH (08:56)
[2018-11-28] MEDS: DIAZEPAM 5 MG TABLET PO SCH ×3 (08:56→20:37)
[2018-11-28] MEDS: MULTIVITAMINS, THERAPEUTIC TABLET PO SCH (08:56)
[2018-11-28] MEDS: HEPARIN SODIUM,PORCINE 5,000 UNITS/ML VIAL SQ SCH ×2 (08:57→20:37)
[2018-11-28 11:15] VITALS: BP 133/75
[2018-11-28] MEDS: MAGNESIUM HYDROXIDE SUSPENSION 30 ML UDCUP PO PRN (12:08)
[2018-11-28 15:03] VITALS: BP 132/68
[2018-11-28 19:30] VITALS: BP 110/71
[2018-11-28 23:55] VITALS: BP 111/70
[2018-11-29 04:40] VITALS: BP 105/72
[2018-11-29] MEDS: HYDROCODONE/ACETAMINOPHEN 5-325 MG TABLET PO SCH ×3 (06:10→20:46)
[2018-11-29] MEDS: CARBIDOPA/LEVODOPA 25-250 MG TABLET PO SCH ×5 (06:10→20:46)
[2018-11-29] MEDS: ASPIRIN 81 MG EC TABLET PO SCH (08:16)
[2018-11-29] MEDS: CHOLECALCIFEROL (VIT D3) 1,000 UNITS TABLET PO SCH (08:16)
[2018-11-29] MEDS: HEPARIN SODIUM,PORCINE 5,000 UNITS/ML VIAL SQ SCH ×2 (08:16→20:45)
[2018-11-29] MEDS: ASCORBIC ACID 500 MG TABLET PO SCH (08:16)
[2018-11-29] MEDS: DIAZEPAM 5 MG TABLET PO SCH ×3 (08:16→20:45)
[2018-11-29] MEDS: MULTIVITAMINS, THERAPEUTIC TABLET PO SCH (08:16)
[2018-11-29] MEDS: DOCUSATE SODIUM 100 MG CAPSULE PO SCH ×2 (08:16→20:45)
[2018-11-29] MEDS: RANITIDINE HCL 150 MG TABLET PO SCH (08:17)
[2018-11-29] MEDS: BACLOFEN 10 MG TABLET PO SCH ×4 (08:17→20:45)
[2018-11-29 08:28] VITALS: BP 99/61
[2018-11-29 11:15] VITALS: BP 125/76
[2018-11-29 13:30] VITALS: BP 113/72
[2018-11-29 20:21] VITALS: BP 109/67
[2018-11-30] VITALS (7 sets, daily range): BP systolic 107–139; BP diastolic 62–89
[2018-11-30] MEDS: HYDROCODONE/ACETAMINOPHEN 5-325 MG TABLET PO SCH ×3 (06:23→23:10)
[2018-11-30] MEDS: CARBIDOPA/LEVODOPA 25-250 MG TABLET PO SCH ×5 (06:23→23:10)
[2018-11-30] MEDS: HEPARIN SODIUM,PORCINE 5,000 UNITS/ML VIAL SQ SCH ×2 (08:14→20:10)
[2018-11-30] MEDS: CHOLECALCIFEROL (VIT D3) 1,000 UNITS TABLET PO SCH (08:14)
[2018-11-30] MEDS: DOCUSATE SODIUM 100 MG CAPSULE PO SCH ×2 (08:14→20:08)
[2018-11-30] MEDS: MULTIVITAMINS, THERAPEUTIC TABLET PO SCH (08:15)
[2018-11-30] MEDS: ASPIRIN 81 MG EC TABLET PO SCH (08:15)
[2018-11-30] MEDS: ASCORBIC ACID 500 MG TABLET PO SCH (08:15)
[2018-11-30] MEDS: BACLOFEN 10 MG TABLET PO SCH ×4 (08:15→20:08)
[2018-11-30] MEDS: RANITIDINE HCL 150 MG TABLET PO SCH (08:15)
[2018-11-30] MEDS: DIAZEPAM 5 MG TABLET PO SCH ×3 (08:15→20:08)
[2018-12-01 03:40] VITALS: BP 120/78
[2018-12-01] MEDS: CARBIDOPA/LEVODOPA 25-250 MG TABLET PO SCH ×5 (05:50→22:47)
[2018-12-01] MEDS: HYDROCODONE/ACETAMINOPHEN 5-325 MG TABLET PO SCH ×3 (05:50→22:49)
[2018-12-01 08:05] VITALS: BP 129/78
[2018-12-01] MEDS: MULTIVITAMINS, THERAPEUTIC TABLET PO SCH (08:48)
[2018-12-01] MEDS: CHOLECALCIFEROL (VIT D3) 1,000 UNITS TABLET PO SCH (08:48)
[2018-12-01] MEDS: ASPIRIN 81 MG EC TABLET PO SCH (08:48)
[2018-12-01] MEDS: ASCORBIC ACID 500 MG TABLET PO SCH (08:48)
[2018-12-01] MEDS: BACLOFEN 10 MG TABLET PO SCH ×4 (08:48→20:36)
[2018-12-01] MEDS: DIAZEPAM 5 MG TABLET PO SCH ×3 (08:48→20:29)
[2018-12-01] MEDS: HEPARIN SODIUM,PORCINE 5,000 UNITS/ML VIAL SQ SCH ×2 (08:49→20:29)
[2018-12-01] MEDS: DOCUSATE SODIUM 100 MG CAPSULE PO SCH ×3 (08:49→20:29)
[2018-12-01] MEDS: RANITIDINE HCL 150 MG TABLET PO SCH (09:19)
[2018-12-01 12:18] VITALS: BP 95/53
[2018-12-01 15:16] VITALS: BP 106/63
[2018-12-01] MEDS: MAGNESIUM HYDROXIDE SUSPENSION 30 ML UDCUP PO PRN (15:39)
[2018-12-01] MEDS: LORazepam 2 MG/ML VIAL IVP PRN (17:32)
[2018-12-01 19:32] VITALS: BP 101/70
[2018-12-01 23:22] VITALS: BP 119/78
[2018-12-02 06:19] VITALS: BP 105/75
[2018-12-02] MEDS: CARBIDOPA/LEVODOPA 25-250 MG TABLET PO SCH ×5 (06:46→22:07)
[2018-12-02] MEDS: HYDROCODONE/ACETAMINOPHEN 5-325 MG TABLET PO SCH ×3 (06:50→19:29)
[2018-12-02 07:51] VITALS: BP 118/77
[2018-12-02] MEDS: CHOLECALCIFEROL (VIT D3) 1,000 UNITS TABLET PO SCH (08:25)
[2018-12-02] MEDS: HEPARIN SODIUM,PORCINE 5,000 UNITS/ML VIAL SQ SCH ×2 (08:25→19:30)
[2018-12-02] MEDS: DOCUSATE SODIUM 100 MG CAPSULE PO SCH ×2 (08:25→19:29)
[2018-12-02] MEDS: ASCORBIC ACID 500 MG TABLET PO SCH (08:26)
[2018-12-02] MEDS: MULTIVITAMINS, THERAPEUTIC TABLET PO SCH (08:26)
[2018-12-02] MEDS: ASPIRIN 81 MG EC TABLET PO SCH (08:26)
[2018-12-02] MEDS: BACLOFEN 10 MG TABLET PO SCH ×4 (08:26→19:30)
[2018-12-02] MEDS: DIAZEPAM 5 MG TABLET PO SCH ×3 (08:26→19:30)
[2018-12-02] MEDS: RANITIDINE HCL 150 MG TABLET PO SCH (08:26)
[2018-12-02] MEDS: LORazepam 2 MG/ML VIAL IVP PRN (08:32)
[2018-12-02 11:53] VITALS: BP 111/77
[2018-12-02 15:05] VITALS: BP 139/89
[2018-12-02 19:40] VITALS: BP 140/82
[2018-12-03] VITALS (7 sets, daily range): BP systolic 90–143; BP diastolic 59–85
[2018-12-03] MEDS: HYDROCODONE/ACETAMINOPHEN 5-325 MG TABLET PO SCH ×3 (03:28→21:48)
[2018-12-03] MEDS: CARBIDOPA/LEVODOPA 25-250 MG TABLET PO SCH ×5 (06:19→20:54)
[2018-12-03] MEDS: ASPIRIN 81 MG EC TABLET PO SCH (08:42)
[2018-12-03] MEDS: CHOLECALCIFEROL (VIT D3) 1,000 UNITS TABLET PO SCH (08:42)
[2018-12-03] MEDS: DIAZEPAM 5 MG TABLET PO SCH ×3 (08:42→20:53)
[2018-12-03] MEDS: ASCORBIC ACID 500 MG TABLET PO SCH (08:42)
[2018-12-03] MEDS: DOCUSATE SODIUM 100 MG CAPSULE PO SCH ×2 (08:42→20:54)
[2018-12-03] MEDS: BACLOFEN 10 MG TABLET PO SCH ×4 (08:43→20:54)
[2018-12-03] MEDS: MULTIVITAMINS, THERAPEUTIC TABLET PO SCH (08:43)
[2018-12-03] MEDS: HEPARIN SODIUM,PORCINE 5,000 UNITS/ML VIAL SQ SCH ×2 (08:43→20:54)
[2018-12-03] MEDS: RANITIDINE HCL 150 MG TABLET PO SCH (08:44)
[2018-12-04 03:00] VITALS: BP 130/70
[2018-12-04] MEDS: HYDROCODONE/ACETAMINOPHEN 5-325 MG TABLET PO SCH ×3 (06:26→21:00)
[2018-12-04] MEDS: CARBIDOPA/LEVODOPA 25-250 MG TABLET PO SCH ×5 (06:26→21:00)
[2018-12-04 08:09] VITALS: BP 121/77
[2018-12-04] MEDS: BACLOFEN 10 MG TABLET PO SCH ×4 (08:38→20:49)
[2018-12-04] MEDS: MULTIVITAMINS, THERAPEUTIC TABLET PO SCH (08:38)
[2018-12-04] MEDS: DIAZEPAM 5 MG TABLET PO SCH ×3 (08:38→20:49)
[2018-12-04] MEDS: HEPARIN SODIUM,PORCINE 5,000 UNITS/ML VIAL SQ SCH ×2 (08:38→20:49)
[2018-12-04] MEDS: ASCORBIC ACID 500 MG TABLET PO SCH (08:38)
[2018-12-04] MEDS: ASPIRIN 81 MG EC TABLET PO SCH (08:38)
[2018-12-04] MEDS: CHOLECALCIFEROL (VIT D3) 1,000 UNITS TABLET PO SCH (08:38)
[2018-12-04] MEDS: DOCUSATE SODIUM 100 MG CAPSULE PO SCH ×2 (08:39→20:49)
[2018-12-04] MEDS: RANITIDINE HCL 150 MG TABLET PO SCH (08:39)
[2018-12-04 11:40] VITALS: BP 124/78
[2018-12-04 19:19] VITALS: BP_SYST 103; BP_SYST 124; BP_DIAS 62; BP_DIAS 70
[2018-12-04] MEDS: LORazepam 2 MG/ML VIAL IVP PRN (21:57)
[2018-12-05 02:06] VITALS: BP 149/90
[2018-12-05] MEDS: MORPHINE SULFATE 2 MG/ML SYRINGE IVP PRN (03:07)
[2018-12-05] MEDS: CARBIDOPA/LEVODOPA 25-250 MG TABLET PO SCH ×5 (05:00→22:49)
[2018-12-05] MEDS: HYDROCODONE/ACETAMINOPHEN 5-325 MG TABLET PO SCH ×3 (05:00→22:50)
[2018-12-05 05:07] VITALS: BP 124/77
[2018-12-05] MEDS: MULTIVITAMINS, THERAPEUTIC TABLET PO SCH (08:07)
[2018-12-05] MEDS: CHOLECALCIFEROL (VIT D3) 1,000 UNITS TABLET PO SCH (08:07)
[2018-12-05] MEDS: RANITIDINE HCL 150 MG TABLET PO SCH (08:08)
[2018-12-05] MEDS: HEPARIN SODIUM,PORCINE 5,000 UNITS/ML VIAL SQ SCH ×2 (08:08→20:19)
[2018-12-05] MEDS: DIAZEPAM 5 MG TABLET PO SCH ×3 (08:08→20:19)
[2018-12-05] MEDS: ASCORBIC ACID 500 MG TABLET PO SCH (08:08)
[2018-12-05] MEDS: DOCUSATE SODIUM 100 MG CAPSULE PO SCH ×2 (08:08→20:19)
[2018-12-05] MEDS: BACLOFEN 10 MG TABLET PO SCH ×4 (08:09→20:20)
[2018-12-05] MEDS: ASPIRIN 81 MG EC TABLET PO SCH (08:09)
[2018-12-05 12:15] VITALS: BP 112/57
[2018-12-05 19:00] VITALS: BP 132/80
[2018-12-06] VITALS (7 sets, daily range): BP systolic 105–128; BP diastolic 58–87
[2018-12-06] MEDS: CARBIDOPA/LEVODOPA 25-250 MG TABLET PO SCH ×5 (06:22→22:10)
[2018-12-06] MEDS: HYDROCODONE/ACETAMINOPHEN 5-325 MG TABLET PO SCH ×3 (06:22→22:09)
[2018-12-06] MEDS: DOCUSATE SODIUM 100 MG CAPSULE PO SCH ×2 (07:47→20:10)
[2018-12-06] MEDS: ASCORBIC ACID 500 MG TABLET PO SCH (07:50)
[2018-12-06] MEDS: HEPARIN SODIUM,PORCINE 5,000 UNITS/ML VIAL SQ SCH ×2 (07:50→20:10)
[2018-12-06] MEDS: BACLOFEN 10 MG TABLET PO SCH ×4 (07:50→20:09)
[2018-12-06] MEDS: CHOLECALCIFEROL (VIT D3) 1,000 UNITS TABLET PO SCH (07:50)
[2018-12-06] MEDS: ASPIRIN 81 MG EC TABLET PO SCH (07:51)
[2018-12-06] MEDS: DIAZEPAM 5 MG TABLET PO SCH ×3 (07:51→20:09)
[2018-12-06] MEDS: MULTIVITAMINS, THERAPEUTIC TABLET PO SCH (07:51)
[2018-12-06] MEDS: RANITIDINE HCL 150 MG TABLET PO SCH (07:51)
[2018-12-07 05:00] VITALS: BP 141/85
[2018-12-07] MEDS: HYDROCODONE/ACETAMINOPHEN 5-325 MG TABLET PO SCH (06:05)
[2018-12-07] MEDS: CARBIDOPA/LEVODOPA 25-250 MG TABLET PO SCH ×2 (06:05→10:15)
[2018-12-07 07:51] VITALS: BP 130/84
[2018-12-07] MEDS: DOCUSATE SODIUM 100 MG CAPSULE PO SCH (08:31)
[2018-12-07] MEDS: ASCORBIC ACID 500 MG TABLET PO SCH (08:31)
[2018-12-07] MEDS: MULTIVITAMINS, THERAPEUTIC TABLET PO SCH (08:31)
[2018-12-07] MEDS: BACLOFEN 10 MG TABLET PO SCH (08:31)
[2018-12-07] MEDS: CHOLECALCIFEROL (VIT D3) 1,000 UNITS TABLET PO SCH (08:31)
[2018-12-07] MEDS: DIAZEPAM 5 MG TABLET PO SCH (08:32)
[2018-12-07] MEDS: ASPIRIN 81 MG EC TABLET PO SCH (08:32)
[2018-12-07] MEDS: HEPARIN SODIUM,PORCINE 5,000 UNITS/ML VIAL SQ SCH (08:32)
[2018-12-07] MEDS: RANITIDINE HCL 150 MG TABLET PO SCH (08:36)
[2018-12-07 11:12] VITALS: BP 125/90
== END 2018-12-07 11:30 | disposition home or self-care (01) | DRG 421 ==
LOC: EMS 15:42 → 5N 20:30
PROVIDERS: ADMIT Internal Medicine; ATTEND Internal Medicine
DX: R62.7 Adult failure to thrive (principal); E43 Unspecified severe protein-calorie malnutrition; L89.151 Pressure ulcer of sacral region, stage 1; R53.2 Functional quadriplegia; G20 Parkinson's disease; F29 Unspecified psychosis not due to a substance or known physiological condition; K21.9 Gastro-esophageal reflux disease without esophagitis; M62.422 Contracture of muscle, left upper arm; F20.0 Paranoid schizophrenia; K59.00 Constipation, unspecified; E55.9 Vitamin D deficiency, unspecified; I10 Essential (primary) hypertension; F41.9 Anxiety disorder, unspecified; Z68.25 Body mass index [BMI] 25.0-25.9, adult; Z91.81 History of falling
CPT/HCPCS: 51701; 83735; 84100; 87081; 93005; 97162; 97530; G0378; G0480; J1644; J2060; J2270

== ENCOUNTER 2018-12-08 16:14 | Inpatient (IN) | payer OTHER ==
[~2018-12-08] VITALS: Ht 172.7 cm; Wt 62.7 kg
[~2018-12-08 16:14] MED LIST changes: +ASPI-1182 PO; -BISA10S PR; +CARB-102 PO; -CARB-38 PO; -DIAZ2 PO; +DIAZ5 PO; -FE PR; -PANT40TA25 PO; +PIMA34CA PO; -QUET25TA PO; +RANI150T7 PO
[2018-12-08] MEDS ORDERED: BACLOFEN 10 MG TABLET PO ONE (18:00)
[2018-12-08] MEDS ORDERED: SODIUM CHLORIDE 0.9% 1,000 ML IV ONE (18:00)
[2018-12-08] MEDS ORDERED: HYDROCODONE/ACETAMINOPHEN 5-325 MG TABLET PO ONE (18:00)
[2018-12-08] MEDS ORDERED: CARBIDOPA/LEVODOPA 25-250 MG TABLET PO ONE (18:00)
[2018-12-08 18:39] LABS: BASOPHILS % (AUTO) 0.5 % (0.0-2.0); EOSINOPHILS % (AUTO) 0 % (1.0-6.0); HEMATOCRIT 42.2 % (36-46); HEMOGLOBIN 14.2 g/dL (12.0-16.0); LYMPHOCYTES # (AUTO) 1.9 K/uL (1.0-4.8); LYMPHOCYTES % (AUTO) 19.6 % (22.0-44.0); MEAN CORPUSCULAR HEMOGLOBIN 33.3 pg (26.0-34.0); MEAN CORPUSCULAR HGB CONC 33.6 G/dL (31.0-37.0); MEAN CORPUSCULAR VOLUME 99 fL (80-100); MONOCYTES # (AUTO) 0.8 K/uL (0.1-1.0); MONOCYTES % (AUTO) 8.5 % (2.0-9.0); NEUTROPHILS % (AUTO) 71.4 % (40.0-70.0); PLATELET COUNT (AUTO) 310 K/uL (150-450); RED BLOOD CELL COUNT(AUTO) 4.26 MIL/uL (4.00-5.20); RED CELL DISTRIBUTION WIDTH 12.3 % (11.5-14.5)
[2018-12-08 18:49] LABS: ANION GAP 8 mmol/L (8-16); CALCIUM, TOTAL 9.4 mg/dL (8.8-10.5); CARBON DIOXIDE 27 mmol/L (22-29); CHLORIDE 102 mmol/L (98-107); CREATININE 0.63 mg/dL (0.60-1.30); GLOMERULAR FILTR. RATE CALC > 60 mL/min (>60); GLUCOSE,RANDOM 106 mg/dL (70-110); POTASSIUM 4.2 mmol/L (3.5-5.1); SODIUM SERUM 137 mmol/L (136-145); UREA NITROGEN, BLOOD 30 mg/dL (7-18)
[2018-12-08 19:14] LABS: ALANINE AMINOTRANSFERASE 29 U/L (12-78); ALBUMIN 4.2 g/dL (3.4-5.0); ALKALINE PHOSPHATASE 71 U/L (46-116); ASPARTATE AMINOTRANSFERASE 22 U/L (15-37); BILIRUBIN,TOTAL 0.7 mg/dL (0.1-1.0); CREATINE KINASE, TOTAL ONLY 92 U/L (26-192); TOTAL PROTEIN, SERUM 7.8 g/dL (6.4-8.2)
[2018-12-08] MEDS ORDERED: ONDANSETRON HCL 4 MG/2 ML VIAL IVP PRN ×2 (19:15→21:00)
[2018-12-08] MEDS ORDERED: ACETAMINOPHEN 325 MG TABLET PO PRN (19:15)
[2018-12-08] MEDS ORDERED: BISACODYL 10 MG RECTAL RECTAL SUPPOSITORY PR PRN (21:00)
[2018-12-08] MEDS ORDERED: MORPHINE SULFATE 2 MG/ML SYRINGE IVP PRN (21:00)
[2018-12-08] MEDS ORDERED: ALBUTEROL SULFATE 2.5 MG/0.5 ML NEB SOLUTION NEB PRN (21:00)
[2018-12-08] MEDS ORDERED: IPRATROPIUM BROMIDE 0.5 MG/2.5 ML NEB SOLUTION NEB PRN (21:00)
[2018-12-08 22:19] VITALS: BP 107/70
[2018-12-08] MEDS: CARBIDOPA/LEVODOPA 25-250 MG TABLET PO SCH (22:55)
[2018-12-08] MEDS: MAGNESIUM HYDROXIDE SUSPENSION 30 ML UDCUP PO PRN (22:55)
[2018-12-08] MEDS: BACLOFEN 10 MG TABLET PO SCH (22:55)
[2018-12-08] MEDS: HEPARIN SODIUM,PORCINE 5,000 UNITS/ML VIAL SQ SCH (22:55)
[2018-12-08] MEDS: DIAZEPAM 5 MG TABLET PO SCH (22:55)
[2018-12-09 04:13] VITALS: BP 127/78
[2018-12-09] MEDS: CARBIDOPA/LEVODOPA 25-250 MG TABLET PO SCH ×5 (05:56→22:05)
[2018-12-09] MEDS: OxyCODONE HCL/ACETAMINOPHEN 5-325 MG TABLET PO PRN (06:00)
[2018-12-09 06:13] LABS: BASOPHILS % (AUTO) 0.3 % (0.0-2.0); EOSINOPHILS % (AUTO) 0.4 % (1.0-6.0); HEMATOCRIT 38.7 % (36-46); HEMOGLOBIN 13.2 g/dL (12.0-16.0); LYMPHOCYTES # (AUTO) 1.7 K/uL (1.0-4.8); MEAN CORPUSCULAR HEMOGLOBIN 33.5 pg (26.0-34.0); MEAN CORPUSCULAR HGB CONC 34.1 G/dL (31.0-37.0); MEAN CORPUSCULAR VOLUME 98 fL (80-100); MONOCYTES # (AUTO) 0.9 K/uL (0.1-1.0); MONOCYTES % (AUTO) 8.9 % (2.0-9.0); NEUTROPHILS # (AUTO) 7.5 K/uL (1.8-7.7); NEUTROPHILS % (AUTO) 73.4 % (40.0-70.0); PLATELET COUNT (AUTO) 284 K/uL (150-450); RED BLOOD CELL COUNT(AUTO) 3.94 MIL/uL (4.00-5.20); RED CELL DISTRIBUTION WIDTH 12.3 % (11.5-14.5)
[2018-12-09 07:32] LABS: ALANINE AMINOTRANSFERASE 19 U/L (12-78); ALBUMIN 3.8 g/dL (3.4-5.0); ALKALINE PHOSPHATASE 65 U/L (46-116); ANION GAP 10 mmol/L (8-16); ASPARTATE AMINOTRANSFERASE 22 U/L (15-37); BILIRUBIN,TOTAL 0.7 mg/dL (0.1-1.0); CALCIUM, TOTAL 8.7 mg/dL (8.8-10.5); CARBON DIOXIDE 25 mmol/L (22-29); CHLORIDE 100 mmol/L (98-107); CREATININE 0.55 mg/dL (0.60-1.30); GLOMERULAR FILTR. RATE CALC > 60 mL/min (>60); GLUCOSE,RANDOM 94 mg/dL (70-110); POTASSIUM 3.5 mmol/L (3.5-5.1); SODIUM SERUM 135 mmol/L (136-145); TOTAL PROTEIN, SERUM 6.9 g/dL (6.4-8.2); UREA NITROGEN, BLOOD 29 mg/dL (7-18)
[2018-12-09 08:00] VITALS: BP 99/72
[2018-12-09] MEDS: ASCORBIC ACID 500 MG TABLET PO SCH (08:54)
[2018-12-09] MEDS: BACLOFEN 10 MG TABLET PO SCH ×4 (08:54→20:24)
[2018-12-09] MEDS: ASPIRIN 81 MG EC TABLET PO SCH (08:54)
[2018-12-09] MEDS: FAMOTIDINE 20 MG TABLET PO SCH (08:54)
[2018-12-09] MEDS: MULTIVITAMINS, THERAPEUTIC TABLET PO SCH (08:54)
[2018-12-09] MEDS: DIAZEPAM 5 MG TABLET PO SCH ×3 (08:55→20:24)
[2018-12-09] MEDS: CHOLECALCIFEROL (VIT D3) 1,000 UNITS TABLET PO SCH (08:55)
[2018-12-09] MEDS: HEPARIN SODIUM,PORCINE 5,000 UNITS/ML VIAL SQ SCH ×2 (08:55→20:24)
[2018-12-09] MEDS ORDERED: [UNRECOGNIZED DRUG - OTHER] PO SCH (09:00)
[2018-12-09] MEDS ORDERED: PIMAVANSERIN TARTRATE 34 MG PO SCH (09:00)
[2018-12-09 11:10] VITALS: BP 96/67
[2018-12-09] MEDS: MAGNESIUM HYDROXIDE SUSPENSION 30 ML UDCUP PO PRN (12:06)
[2018-12-09 15:55] VITALS: BP 135/85
[2018-12-09 20:11] VITALS: BP 158/88
[2018-12-10] MEDS: OxyCODONE HCL/ACETAMINOPHEN 5-325 MG TABLET PO PRN ×2 (03:53→10:40)
[2018-12-10 05:27] VITALS: BP 146/83
[2018-12-10] MEDS: CARBIDOPA/LEVODOPA 25-250 MG TABLET PO SCH ×5 (06:00→20:52)
[2018-12-10] MEDS: MULTIVITAMINS, THERAPEUTIC TABLET PO SCH (08:24)
[2018-12-10] MEDS: CHOLECALCIFEROL (VIT D3) 1,000 UNITS TABLET PO SCH ×2 (08:24→08:31)
[2018-12-10] MEDS: BACLOFEN 10 MG TABLET PO SCH ×4 (08:24→20:53)
[2018-12-10] MEDS: DIAZEPAM 5 MG TABLET PO SCH ×3 (08:24→20:51)
[2018-12-10] MEDS: HEPARIN SODIUM,PORCINE 5,000 UNITS/ML VIAL SQ SCH ×3 (08:24→20:51)
[2018-12-10] MEDS: FAMOTIDINE 20 MG TABLET PO SCH (08:24)
[2018-12-10] MEDS: ASPIRIN 81 MG EC TABLET PO SCH (08:24)
[2018-12-10] MEDS: ASCORBIC ACID 500 MG TABLET PO SCH (08:24)
[2018-12-10 09:28] VITALS: BP 106/64
[2018-12-10 15:27] VITALS: BP 118/73
[2018-12-10 20:12] VITALS: BP_SYST 121; BP_SYST 126; BP_DIAS 76; BP_DIAS 87
[2018-12-10 23:57] VITALS: BP 119/71
[2018-12-11] MEDS: OxyCODONE HCL/ACETAMINOPHEN 5-325 MG TABLET PO PRN ×3 (01:57→22:00)
[2018-12-11 04:00] VITALS: BP 159/91
[2018-12-11] MEDS: CARBIDOPA/LEVODOPA 25-250 MG TABLET PO SCH ×5 (05:40→21:57)
[2018-12-11 08:17] VITALS: BP 107/75
[2018-12-11] MEDS: CHOLECALCIFEROL (VIT D3) 1,000 UNITS TABLET PO SCH (08:47)
[2018-12-11] MEDS: BACLOFEN 10 MG TABLET PO SCH ×4 (08:48→20:01)
[2018-12-11] MEDS: DIAZEPAM 5 MG TABLET PO SCH ×3 (08:48→20:01)
[2018-12-11] MEDS: ASCORBIC ACID 500 MG TABLET PO SCH (08:48)
[2018-12-11] MEDS: MULTIVITAMINS, THERAPEUTIC TABLET PO SCH (08:48)
[2018-12-11] MEDS: FAMOTIDINE 20 MG TABLET PO SCH (08:48)
[2018-12-11] MEDS: HEPARIN SODIUM,PORCINE 5,000 UNITS/ML VIAL SQ SCH ×2 (08:48→20:01)
[2018-12-11] MEDS: ASPIRIN 81 MG EC TABLET PO SCH (08:55)
[2018-12-11 11:50] VITALS: BP 150/77
[2018-12-11 15:57] VITALS: BP 106/70
[2018-12-11 20:14] VITALS: BP 103/67
[2018-12-11 23:49] VITALS: BP 109/87
[2018-12-12 04:00] VITALS: BP 122/74
[2018-12-12] MEDS: CARBIDOPA/LEVODOPA 25-250 MG TABLET PO SCH ×5 (06:17→23:01)
[2018-12-12 09:27] VITALS: BP 114/85
[2018-12-12] MEDS: MULTIVITAMINS, THERAPEUTIC TABLET PO SCH (09:28)
[2018-12-12] MEDS: DIAZEPAM 5 MG TABLET PO SCH ×3 (09:28→20:25)
[2018-12-12] MEDS: FAMOTIDINE 20 MG TABLET PO SCH (09:28)
[2018-12-12] MEDS: HEPARIN SODIUM,PORCINE 5,000 UNITS/ML VIAL SQ SCH ×2 (09:30→20:25)
[2018-12-12] MEDS: ASPIRIN 81 MG EC TABLET PO SCH (09:30)
[2018-12-12] MEDS: CHOLECALCIFEROL (VIT D3) 1,000 UNITS TABLET PO SCH (09:30)
[2018-12-12] MEDS: ASCORBIC ACID 500 MG TABLET PO SCH (09:30)
[2018-12-12] MEDS: BACLOFEN 10 MG TABLET PO SCH ×4 (09:31→20:25)
[2018-12-12 15:29] VITALS: BP 118/83
[2018-12-12 20:00] VITALS: BP 99/67
[2018-12-12 22:34] VITALS: BP 105/70
[2018-12-12] MEDS: OxyCODONE HCL/ACETAMINOPHEN 5-325 MG TABLET PO PRN (22:52)
[2018-12-12] MEDS: ZOLPIDEM TARTRATE 5 MG TABLET PO PRN (22:59)
[2018-12-13 04:56] VITALS: BP 123/82
[2018-12-13] MEDS: CARBIDOPA/LEVODOPA 25-250 MG TABLET PO SCH ×5 (06:02→22:15)
[2018-12-13 06:17] LABS: BASOPHILS % (AUTO) 1.1 % (0.0-2.0); EOSINOPHILS % (AUTO) 3.2 % (1.0-6.0); HEMATOCRIT 38.4 % (36-46); HEMOGLOBIN 12.8 g/dL (12.0-16.0); LYMPHOCYTES # (AUTO) 2.6 K/uL (1.0-4.8); LYMPHOCYTES % (AUTO) 51.4 % (22.0-44.0); MEAN CORPUSCULAR HEMOGLOBIN 33.3 pg (26.0-34.0); MEAN CORPUSCULAR HGB CONC 33.4 G/dL (31.0-37.0); MEAN CORPUSCULAR VOLUME 100 fL (80-100); MONOCYTES # (AUTO) 0.4 K/uL (0.1-1.0); MONOCYTES % (AUTO) 8.2 % (2.0-9.0); NEUTROPHILS # (AUTO) 1.8 K/uL (1.8-7.7); NEUTROPHILS % (AUTO) 36.1 % (40.0-70.0); PLATELET COUNT (AUTO) 277 K/uL (150-450); RED BLOOD CELL COUNT(AUTO) 3.85 MIL/uL (4.00-5.20); RED CELL DISTRIBUTION WIDTH 12.4 % (11.5-14.5)
[2018-12-13] MEDS: ACETAMINOPHEN 325 MG TABLET PO PRN ×2 (06:36→17:14)
[2018-12-13 07:06] LABS: ANION GAP 9 mmol/L (8-16); CALCIUM, TOTAL 9.2 mg/dL (8.8-10.5); CARBON DIOXIDE 27 mmol/L (22-29); CHLORIDE 104 mmol/L (98-107); CREATININE 0.56 mg/dL (0.60-1.30); GLOMERULAR FILTR. RATE CALC > 60 mL/min (>60); GLUCOSE,RANDOM 98 mg/dL (70-110); POTASSIUM 4.4 mmol/L (3.5-5.1); SODIUM SERUM 140 mmol/L (136-145); UREA NITROGEN, BLOOD 16 mg/dL (7-18)
[2018-12-13 07:10] VITALS: BP 106/69
[2018-12-13] MEDS: FAMOTIDINE 20 MG TABLET PO SCH (09:00)
[2018-12-13] MEDS: MULTIVITAMINS, THERAPEUTIC TABLET PO SCH (09:55)
[2018-12-13] MEDS: DIAZEPAM 5 MG TABLET PO SCH ×3 (09:55→20:36)
[2018-12-13] MEDS: BACLOFEN 10 MG TABLET PO SCH ×4 (09:55→20:36)
[2018-12-13] MEDS: ASCORBIC ACID 500 MG TABLET PO SCH (09:55)
[2018-12-13] MEDS: ASPIRIN 81 MG EC TABLET PO SCH (09:56)
[2018-12-13] MEDS: HEPARIN SODIUM,PORCINE 5,000 UNITS/ML VIAL SQ SCH ×2 (09:56→20:36)
[2018-12-13] MEDS: CHOLECALCIFEROL (VIT D3) 1,000 UNITS TABLET PO SCH (09:56)
[2018-12-13 12:09] VITALS: BP 112/72
[2018-12-13 15:10] VITALS: BP 102/70
[2018-12-13 21:13] VITALS: BP 110/69
[2018-12-13] MEDS: ZOLPIDEM TARTRATE 5 MG TABLET PO PRN (22:31)
[2018-12-14 00:15] VITALS: BP 109/87
[2018-12-14] MEDS: OxyCODONE HCL/ACETAMINOPHEN 5-325 MG TABLET PO PRN ×2 (03:39→20:18)
[2018-12-14 05:32] VITALS: BP 111/69
[2018-12-14] MEDS: CARBIDOPA/LEVODOPA 25-250 MG TABLET PO SCH ×5 (07:00→21:29)
[2018-12-14] MEDS: FAMOTIDINE 20 MG TABLET PO SCH (07:43)
[2018-12-14] MEDS: HEPARIN SODIUM,PORCINE 5,000 UNITS/ML VIAL SQ SCH ×2 (07:43→20:18)
[2018-12-14] MEDS: CHOLECALCIFEROL (VIT D3) 1,000 UNITS TABLET PO SCH (07:43)
[2018-12-14] MEDS: BACLOFEN 10 MG TABLET PO SCH ×4 (07:43→20:18)
[2018-12-14] MEDS: ASPIRIN 81 MG EC TABLET PO SCH (07:43)
[2018-12-14] MEDS: MULTIVITAMINS, THERAPEUTIC TABLET PO SCH (07:44)
[2018-12-14] MEDS: ASCORBIC ACID 500 MG TABLET PO SCH (07:44)
[2018-12-14] MEDS: DIAZEPAM 5 MG TABLET PO SCH ×3 (07:44→20:18)
[2018-12-14 07:45] VITALS: BP 118/89
[2018-12-14 16:26] VITALS: BP 106/70
[2018-12-14 20:15] VITALS: BP 123/74
[2018-12-14] MEDS: ZOLPIDEM TARTRATE 5 MG TABLET PO PRN (21:29)
[2018-12-15] MEDS: OxyCODONE HCL/ACETAMINOPHEN 5-325 MG TABLET PO PRN ×3 (01:36→20:35)
[2018-12-15 05:15] VITALS: BP 122/70
[2018-12-15] MEDS: CARBIDOPA/LEVODOPA 25-250 MG TABLET PO SCH ×5 (05:43→22:35)
[2018-12-15 07:28] VITALS: BP 103/64
[2018-12-15] MEDS: CHOLECALCIFEROL (VIT D3) 1,000 UNITS TABLET PO SCH (08:41)
[2018-12-15] MEDS: FAMOTIDINE 20 MG TABLET PO SCH (08:42)
[2018-12-15] MEDS: ASCORBIC ACID 500 MG TABLET PO SCH (08:42)
[2018-12-15] MEDS: MULTIVITAMINS, THERAPEUTIC TABLET PO SCH (08:42)
[2018-12-15] MEDS: DIAZEPAM 5 MG TABLET PO SCH ×3 (08:42→19:59)
[2018-12-15] MEDS: ASPIRIN 81 MG EC TABLET PO SCH (08:42)
[2018-12-15] MEDS: HEPARIN SODIUM,PORCINE 5,000 UNITS/ML VIAL SQ SCH ×2 (08:42→19:59)
[2018-12-15] MEDS: BACLOFEN 10 MG TABLET PO SCH ×4 (08:42→20:01)
[2018-12-15 11:14] VITALS: BP 123/72
[2018-12-15 15:08] VITALS: BP 102/70
[2018-12-15 20:03] VITALS: BP 125/88
[2018-12-15] MEDS: ZOLPIDEM TARTRATE 5 MG TABLET PO PRN (20:35)
[2018-12-16 00:46] VITALS: BP 116/69
[2018-12-16] MEDS: OxyCODONE HCL/ACETAMINOPHEN 5-325 MG TABLET PO PRN ×2 (01:40→22:07)
[2018-12-16] MEDS: CARBIDOPA/LEVODOPA 25-250 MG TABLET PO SCH ×6 (01:42→22:07)
[2018-12-16 08:11] VITALS: BP 137/85
[2018-12-16] MEDS: HEPARIN SODIUM,PORCINE 5,000 UNITS/ML VIAL SQ SCH ×2 (08:40→19:53)
[2018-12-16] MEDS: DIAZEPAM 5 MG TABLET PO SCH ×3 (08:40→19:52)
[2018-12-16] MEDS: BACLOFEN 10 MG TABLET PO SCH ×4 (08:40→19:52)
[2018-12-16] MEDS: ASPIRIN 81 MG EC TABLET PO SCH (08:41)
[2018-12-16] MEDS: FAMOTIDINE 20 MG TABLET PO SCH (08:41)
[2018-12-16] MEDS: CHOLECALCIFEROL (VIT D3) 1,000 UNITS TABLET PO SCH (08:41)
[2018-12-16] MEDS: MULTIVITAMINS, THERAPEUTIC TABLET PO SCH (08:41)
[2018-12-16] MEDS: ASCORBIC ACID 500 MG TABLET PO SCH (08:41)
[2018-12-16] MEDS: MAGNESIUM HYDROXIDE SUSPENSION 30 ML UDCUP PO PRN (11:29)
[2018-12-16 13:30] VITALS: BP 124/76
[2018-12-16 19:17] VITALS: BP 102/67
[2018-12-16] MEDS: ZOLPIDEM TARTRATE 5 MG TABLET PO PRN (22:07)
[2018-12-16 23:13] VITALS: BP 93/59
[2018-12-17 04:53] VITALS: BP 132/75
[2018-12-17] MEDS: OxyCODONE HCL/ACETAMINOPHEN 5-325 MG TABLET PO PRN ×2 (05:01→20:08)
[2018-12-17] MEDS: CARBIDOPA/LEVODOPA 25-250 MG TABLET PO SCH ×5 (05:02→22:11)
[2018-12-17] MEDS: CHOLECALCIFEROL (VIT D3) 1,000 UNITS TABLET PO SCH (08:29)
[2018-12-17] MEDS: ASPIRIN 81 MG EC TABLET PO SCH (08:29)
[2018-12-17] MEDS: ASCORBIC ACID 500 MG TABLET PO SCH (08:29)
[2018-12-17] MEDS: HEPARIN SODIUM,PORCINE 5,000 UNITS/ML VIAL SQ SCH ×2 (08:29→20:08)
[2018-12-17] MEDS: FAMOTIDINE 20 MG TABLET PO SCH (08:29)
[2018-12-17 08:30] VITALS: BP 86/56
[2018-12-17] MEDS: DIAZEPAM 5 MG TABLET PO SCH ×3 (08:30→20:07)
[2018-12-17] MEDS: BACLOFEN 10 MG TABLET PO SCH ×4 (08:30→20:08)
[2018-12-17] MEDS: MULTIVITAMINS, THERAPEUTIC TABLET PO SCH (08:30)
[2018-12-17 11:33] VITALS: BP 92/64
[2018-12-17] MEDS: MAGNESIUM HYDROXIDE SUSPENSION 30 ML UDCUP PO PRN (14:31)
[2018-12-17 15:39] VITALS: BP 104/71
[2018-12-17 19:51] VITALS: BP 135/86
[2018-12-17] MEDS: ZOLPIDEM TARTRATE 5 MG TABLET PO PRN (22:11)
[2018-12-18] MEDS: OxyCODONE HCL/ACETAMINOPHEN 5-325 MG TABLET PO PRN ×4 (00:19→22:40)
[2018-12-18 00:35] VITALS: BP 98/74
[2018-12-18 03:59] VITALS: BP 158/93
[2018-12-18] MEDS: CARBIDOPA/LEVODOPA 25-250 MG TABLET PO SCH ×5 (05:05→22:40)
[2018-12-18 08:31] VITALS: BP 102/65
[2018-12-18] MEDS: MULTIVITAMINS, THERAPEUTIC TABLET PO SCH (08:53)
[2018-12-18] MEDS: CHOLECALCIFEROL (VIT D3) 1,000 UNITS TABLET PO SCH (08:53)
[2018-12-18] MEDS: DIAZEPAM 5 MG TABLET PO SCH ×3 (08:53→19:52)
[2018-12-18] MEDS: ASPIRIN 81 MG EC TABLET PO SCH (08:53)
[2018-12-18] MEDS: ASCORBIC ACID 500 MG TABLET PO SCH (08:53)
[2018-12-18] MEDS: FAMOTIDINE 20 MG TABLET PO SCH (08:53)
[2018-12-18] MEDS: HEPARIN SODIUM,PORCINE 5,000 UNITS/ML VIAL SQ SCH ×2 (08:54→19:52)
[2018-12-18] MEDS: BACLOFEN 10 MG TABLET PO SCH ×4 (08:57→19:52)
[2018-12-18 11:10] VITALS: BP 114/66
[2018-12-18 15:20] VITALS: BP 118/68
[2018-12-18 19:50] VITALS: BP 95/63
[2018-12-18] MEDS: ZOLPIDEM TARTRATE 5 MG TABLET PO PRN (22:46)
[2018-12-19 05:10] VITALS: BP 106/73
[2018-12-19] MEDS: CARBIDOPA/LEVODOPA 25-250 MG TABLET PO SCH ×5 (06:19→22:14)
[2018-12-19 07:54] VITALS: BP 112/72
[2018-12-19] MEDS: FAMOTIDINE 20 MG TABLET PO SCH (08:05)
[2018-12-19] MEDS: MULTIVITAMINS, THERAPEUTIC TABLET PO SCH (08:05)
[2018-12-19] MEDS: DIAZEPAM 5 MG TABLET PO SCH ×3 (08:05→20:29)
[2018-12-19] MEDS: ASCORBIC ACID 500 MG TABLET PO SCH (08:05)
[2018-12-19] MEDS: CHOLECALCIFEROL (VIT D3) 1,000 UNITS TABLET PO SCH (08:05)
[2018-12-19] MEDS: ASPIRIN 81 MG EC TABLET PO SCH (08:05)
[2018-12-19] MEDS: BACLOFEN 10 MG TABLET PO SCH ×4 (08:05→20:29)
[2018-12-19] MEDS: HEPARIN SODIUM,PORCINE 5,000 UNITS/ML VIAL SQ SCH ×2 (08:06→20:29)
[2018-12-19] MEDS: OxyCODONE HCL/ACETAMINOPHEN 5-325 MG TABLET PO PRN ×2 (09:20→23:51)
[2018-12-19 12:20] VITALS: BP 101/50
[2018-12-19 12:21] VITALS: BP 101/50
[2018-12-19] MEDS: MAGNESIUM HYDROXIDE SUSPENSION 30 ML UDCUP PO PRN (12:30)
[2018-12-19 15:17] VITALS: BP 111/75
[2018-12-19 19:00] VITALS: BP 100/68
[2018-12-19] MEDS: ZOLPIDEM TARTRATE 5 MG TABLET PO PRN (22:14)
[2018-12-20] VITALS: BP 134/80
[2018-12-20 04:00] VITALS: BP 140/85
[2018-12-20] MEDS: CARBIDOPA/LEVODOPA 25-250 MG TABLET PO SCH ×5 (06:02→23:07)
[2018-12-20] MEDS: OxyCODONE HCL/ACETAMINOPHEN 5-325 MG TABLET PO PRN ×2 (06:05→23:13)
[2018-12-20 08:23] VITALS: BP 106/68
[2018-12-20] MEDS: DIAZEPAM 5 MG TABLET PO SCH ×3 (08:31→20:57)
[2018-12-20] MEDS: BACLOFEN 10 MG TABLET PO SCH ×4 (08:31→20:57)
[2018-12-20] MEDS: CHOLECALCIFEROL (VIT D3) 1,000 UNITS TABLET PO SCH (08:32)
[2018-12-20] MEDS: FAMOTIDINE 20 MG TABLET PO SCH (08:32)
[2018-12-20] MEDS: ASPIRIN 81 MG EC TABLET PO SCH (08:32)
[2018-12-20] MEDS: HEPARIN SODIUM,PORCINE 5,000 UNITS/ML VIAL SQ SCH ×2 (08:32→20:57)
[2018-12-20] MEDS: ASCORBIC ACID 500 MG TABLET PO SCH (08:32)
[2018-12-20] MEDS: MULTIVITAMINS, THERAPEUTIC TABLET PO SCH (08:32)
[2018-12-20 11:28] VITALS: BP 122/84
[2018-12-20 19:43] VITALS: BP 107/68
[2018-12-20] MEDS: ZOLPIDEM TARTRATE 5 MG TABLET PO PRN (23:07)
[2018-12-20 23:36] VITALS: BP 140/89
[2018-12-21] VITALS (7 sets, daily range): BP systolic 107–123; BP diastolic 62–84
[2018-12-21] MEDS: CARBIDOPA/LEVODOPA 25-250 MG TABLET PO SCH ×5 (06:41→21:23)
[2018-12-21] MEDS: ASCORBIC ACID 500 MG TABLET PO SCH (08:21)
[2018-12-21] MEDS: FAMOTIDINE 20 MG TABLET PO SCH (08:21)
[2018-12-21] MEDS: HEPARIN SODIUM,PORCINE 5,000 UNITS/ML VIAL SQ SCH ×2 (08:21→20:37)
[2018-12-21] MEDS: DIAZEPAM 5 MG TABLET PO SCH ×3 (08:21→20:37)
[2018-12-21] MEDS: BACLOFEN 10 MG TABLET PO SCH ×4 (08:21→20:37)
[2018-12-21] MEDS: ASPIRIN 81 MG EC TABLET PO SCH (08:21)
[2018-12-21] MEDS: CHOLECALCIFEROL (VIT D3) 1,000 UNITS TABLET PO SCH (08:22)
[2018-12-21] MEDS: MULTIVITAMINS, THERAPEUTIC TABLET PO SCH (08:22)
[2018-12-21] MEDS: OxyCODONE HCL/ACETAMINOPHEN 5-325 MG TABLET PO PRN ×2 (09:49→23:27)
[2018-12-21] MEDS: ZOLPIDEM TARTRATE 5 MG TABLET PO PRN (23:27)
[2018-12-22 03:00] VITALS: BP 135/85
[2018-12-22] MEDS: OxyCODONE HCL/ACETAMINOPHEN 5-325 MG TABLET PO PRN ×3 (04:21→20:29)
[2018-12-22] MEDS: CARBIDOPA/LEVODOPA 25-250 MG TABLET PO SCH ×5 (05:27→22:36)
[2018-12-22 05:48] LABS: BASOPHILS % (AUTO) 1.1 % (0.0-2.0); EOSINOPHILS % (AUTO) 2.2 % (1.0-6.0); HEMATOCRIT 39.6 % (36-46); HEMOGLOBIN 13.6 g/dL (12.0-16.0); LYMPHOCYTES % (AUTO) 48.4 % (22.0-44.0); MEAN CORPUSCULAR HEMOGLOBIN 33.8 pg (26.0-34.0); MEAN CORPUSCULAR HGB CONC 34.2 G/dL (31.0-37.0); MEAN CORPUSCULAR VOLUME 99 fL (80-100); MONOCYTES # (AUTO) 0.5 K/uL (0.1-1.0); NEUTROPHILS # (AUTO) 2.5 K/uL (1.8-7.7); NEUTROPHILS % (AUTO) 40.3 % (40.0-70.0); PLATELET COUNT (AUTO) 319 K/uL (150-450); RED BLOOD CELL COUNT(AUTO) 4.02 MIL/uL (4.00-5.20); RED CELL DISTRIBUTION WIDTH 12.2 % (11.5-14.5)
[2018-12-22 05:57] LABS: ANION GAP 12 mmol/L (8-16); CALCIUM, TOTAL 9.1 mg/dL (8.8-10.5); CARBON DIOXIDE 28 mmol/L (22-29); CHLORIDE 99 mmol/L (98-107); CREATININE 0.59 mg/dL (0.60-1.30); GLOMERULAR FILTR. RATE CALC > 60 mL/min (>60); GLUCOSE,RANDOM 94 mg/dL (70-110); POTASSIUM 4.1 mmol/L (3.5-5.1); SODIUM SERUM 139 mmol/L (136-145); UREA NITROGEN, BLOOD 14 mg/dL (7-18)
[2018-12-22] MEDS: DIAZEPAM 5 MG TABLET PO SCH ×3 (07:53→20:19)
[2018-12-22] MEDS: CHOLECALCIFEROL (VIT D3) 1,000 UNITS TABLET PO SCH (07:53)
[2018-12-22] MEDS: HEPARIN SODIUM,PORCINE 5,000 UNITS/ML VIAL SQ SCH ×2 (07:53→20:24)
[2018-12-22] MEDS: MULTIVITAMINS, THERAPEUTIC TABLET PO SCH (07:53)
[2018-12-22] MEDS: FAMOTIDINE 20 MG TABLET PO SCH (07:54)
[2018-12-22] MEDS: ASCORBIC ACID 500 MG TABLET PO SCH (07:54)
[2018-12-22] MEDS: ASPIRIN 81 MG EC TABLET PO SCH (07:54)
[2018-12-22] MEDS: BACLOFEN 10 MG TABLET PO SCH ×4 (07:54→20:20)
[2018-12-22] MEDS: MAGNESIUM HYDROXIDE SUSPENSION 30 ML UDCUP PO PRN (16:15)
[2018-12-22 19:50] VITALS: BP 116/68
[2018-12-22] MEDS: ZOLPIDEM TARTRATE 5 MG TABLET PO PRN (20:29)
[2018-12-22 23:50] VITALS: BP 119/69
[2018-12-23 03:52] VITALS: BP 115/76
[2018-12-23] MEDS: CARBIDOPA/LEVODOPA 25-250 MG TABLET PO SCH ×5 (06:31→21:02)
[2018-12-23 08:30] VITALS: BP 115/75
[2018-12-23] MEDS: ASCORBIC ACID 500 MG TABLET PO SCH (09:48)
[2018-12-23] MEDS: DIAZEPAM 5 MG TABLET PO SCH ×3 (09:49→21:03)
[2018-12-23] MEDS: ASPIRIN 81 MG EC TABLET PO SCH (09:50)
[2018-12-23] MEDS: FAMOTIDINE 20 MG TABLET PO SCH (09:50)
[2018-12-23] MEDS: BACLOFEN 10 MG TABLET PO SCH ×4 (09:50→21:03)
[2018-12-23] MEDS: MULTIVITAMINS, THERAPEUTIC TABLET PO SCH (09:51)
[2018-12-23] MEDS: CHOLECALCIFEROL (VIT D3) 1,000 UNITS TABLET PO SCH (09:51)
[2018-12-23] MEDS: HEPARIN SODIUM,PORCINE 5,000 UNITS/ML VIAL SQ SCH ×2 (09:51→21:03)
[2018-12-23 12:10] VITALS: BP 115/67
[2018-12-23 16:02] VITALS: BP 123/68
[2018-12-23 19:18] VITALS: BP 130/76
[2018-12-23] MEDS: OxyCODONE HCL/ACETAMINOPHEN 5-325 MG TABLET PO PRN (21:03)
[2018-12-23] MEDS: ZOLPIDEM TARTRATE 5 MG TABLET PO PRN (21:56)
[2018-12-24 00:12] VITALS: BP 98/65
[2018-12-24 05:25] VITALS: BP 104/69
[2018-12-24] MEDS: CARBIDOPA/LEVODOPA 25-250 MG TABLET PO SCH ×5 (06:04→22:58)
[2018-12-24] MEDS: OxyCODONE HCL/ACETAMINOPHEN 5-325 MG TABLET PO PRN ×2 (06:04→22:59)
[2018-12-24] MEDS: MULTIVITAMINS, THERAPEUTIC TABLET PO SCH (08:45)
[2018-12-24] MEDS: ASCORBIC ACID 500 MG TABLET PO SCH (08:45)
[2018-12-24] MEDS: CHOLECALCIFEROL (VIT D3) 1,000 UNITS TABLET PO SCH (08:45)
[2018-12-24] MEDS: ASPIRIN 81 MG EC TABLET PO SCH (08:45)
[2018-12-24] MEDS: FAMOTIDINE 20 MG TABLET PO SCH (08:45)
[2018-12-24] MEDS: BACLOFEN 10 MG TABLET PO SCH ×4 (08:45→22:58)
[2018-12-24] MEDS: HEPARIN SODIUM,PORCINE 5,000 UNITS/ML VIAL SQ SCH ×2 (08:46→22:58)
[2018-12-24] MEDS: DIAZEPAM 5 MG TABLET PO SCH ×3 (08:47→22:58)
[2018-12-24 09:20] VITALS: BP 103/66
[2018-12-24 11:32] VITALS: BP 126/77
[2018-12-24 15:28] VITALS: BP 136/101
[2018-12-24 19:00] VITALS: BP 139/87
[2018-12-24] MEDS: ZOLPIDEM TARTRATE 5 MG TABLET PO PRN (22:49)
[2018-12-25] VITALS: BP 133/81
[2018-12-25 04:05] VITALS: BP 126/78
[2018-12-25] MEDS: CARBIDOPA/LEVODOPA 25-250 MG TABLET PO SCH ×5 (06:33→22:37)
[2018-12-25] MEDS: OxyCODONE HCL/ACETAMINOPHEN 5-325 MG TABLET PO PRN ×3 (06:39→22:37)
[2018-12-25 08:18] VITALS: BP 134/80
[2018-12-25] MEDS: HEPARIN SODIUM,PORCINE 5,000 UNITS/ML VIAL SQ SCH ×2 (08:42→20:29)
[2018-12-25] MEDS: ASPIRIN 81 MG EC TABLET PO SCH (08:42)
[2018-12-25] MEDS: MAGNESIUM HYDROXIDE SUSPENSION 30 ML UDCUP PO PRN (08:42)
[2018-12-25] MEDS: ASCORBIC ACID 500 MG TABLET PO SCH (08:43)
[2018-12-25] MEDS: FAMOTIDINE 20 MG TABLET PO SCH (08:43)
[2018-12-25] MEDS: DIAZEPAM 5 MG TABLET PO SCH ×3 (08:43→20:29)
[2018-12-25] MEDS: CHOLECALCIFEROL (VIT D3) 1,000 UNITS TABLET PO SCH (08:43)
[2018-12-25] MEDS: BACLOFEN 10 MG TABLET PO SCH ×4 (08:43→20:29)
[2018-12-25] MEDS: MULTIVITAMINS, THERAPEUTIC TABLET PO SCH (08:43)
[2018-12-25 19:37] VITALS: BP 104/69
[2018-12-25] MEDS: ZOLPIDEM TARTRATE 5 MG TABLET PO PRN (20:28)
[2018-12-26 04:30] VITALS: BP 124/79
[2018-12-26] MEDS: CARBIDOPA/LEVODOPA 25-250 MG TABLET PO SCH ×5 (06:45→22:13)
[2018-12-26 07:25] VITALS: BP 122/76
[2018-12-26] MEDS: DIAZEPAM 5 MG TABLET PO SCH ×3 (08:56→20:30)
[2018-12-26] MEDS: ASCORBIC ACID 500 MG TABLET PO SCH (08:56)
[2018-12-26] MEDS: ASPIRIN 81 MG EC TABLET PO SCH (08:56)
[2018-12-26] MEDS: FAMOTIDINE 20 MG TABLET PO SCH (08:56)
[2018-12-26] MEDS: BACLOFEN 10 MG TABLET PO SCH ×4 (08:56→20:30)
[2018-12-26] MEDS: MULTIVITAMINS, THERAPEUTIC TABLET PO SCH (08:56)
[2018-12-26] MEDS: CHOLECALCIFEROL (VIT D3) 1,000 UNITS TABLET PO SCH (08:56)
[2018-12-26] MEDS: HEPARIN SODIUM,PORCINE 5,000 UNITS/ML VIAL SQ SCH ×2 (08:57→20:30)
[2018-12-26 11:00] VITALS: BP 158/79
[2018-12-26 15:10] VITALS: BP 132/74
[2018-12-26 20:08] VITALS: BP 107/72
[2018-12-26] MEDS: ZOLPIDEM TARTRATE 5 MG TABLET PO PRN (21:48)
[2018-12-26 23:15] VITALS: BP 128/83
[2018-12-27] MEDS: OxyCODONE HCL/ACETAMINOPHEN 5-325 MG TABLET PO PRN (03:03)
[2018-12-27 04:20] VITALS: BP 116/78
[2018-12-27] MEDS: CARBIDOPA/LEVODOPA 25-250 MG TABLET PO SCH ×5 (06:19→23:09)
[2018-12-27 07:25] VITALS: BP 124/81
[2018-12-27] MEDS: BACLOFEN 10 MG TABLET PO SCH ×4 (08:45→20:35)
[2018-12-27] MEDS: FAMOTIDINE 20 MG TABLET PO SCH (08:45)
[2018-12-27] MEDS: CHOLECALCIFEROL (VIT D3) 1,000 UNITS TABLET PO SCH (08:45)
[2018-12-27] MEDS: ASCORBIC ACID 500 MG TABLET PO SCH (08:45)
[2018-12-27] MEDS: HEPARIN SODIUM,PORCINE 5,000 UNITS/ML VIAL SQ SCH ×2 (08:46→20:35)
[2018-12-27] MEDS: DIAZEPAM 5 MG TABLET PO SCH ×3 (08:46→20:35)
[2018-12-27] MEDS: MULTIVITAMINS, THERAPEUTIC TABLET PO SCH (08:46)
[2018-12-27] MEDS: ASPIRIN 81 MG EC TABLET PO SCH (08:46)
[2018-12-27 11:23] VITALS: BP 132/83
[2018-12-27 16:10] VITALS: BP 114/70
[2018-12-27 20:46] VITALS: BP 101/67
[2018-12-27 23:35] VITALS: BP 109/67
[2018-12-27] MEDS: ZOLPIDEM TARTRATE 5 MG TABLET PO PRN (23:41)
[2018-12-28] MEDS: OxyCODONE HCL/ACETAMINOPHEN 5-325 MG TABLET PO PRN ×2 (02:46→22:11)
[2018-12-28 05:19] VITALS: BP 139/79
[2018-12-28] MEDS: CARBIDOPA/LEVODOPA 25-250 MG TABLET PO SCH ×5 (06:32→22:11)
[2018-12-28 07:37] VITALS: BP 130/83
[2018-12-28] MEDS: MULTIVITAMINS, THERAPEUTIC TABLET PO SCH (08:03)
[2018-12-28] MEDS: FAMOTIDINE 20 MG TABLET PO SCH (08:03)
[2018-12-28] MEDS: DIAZEPAM 5 MG TABLET PO SCH ×3 (08:03→20:36)
[2018-12-28] MEDS: BACLOFEN 10 MG TABLET PO SCH ×4 (08:04→20:36)
[2018-12-28] MEDS: CHOLECALCIFEROL (VIT D3) 1,000 UNITS TABLET PO SCH (08:04)
[2018-12-28] MEDS: ASCORBIC ACID 500 MG TABLET PO SCH (08:04)
[2018-12-28] MEDS: ASPIRIN 81 MG EC TABLET PO SCH (08:04)
[2018-12-28] MEDS: HEPARIN SODIUM,PORCINE 5,000 UNITS/ML VIAL SQ SCH ×2 (08:04→20:36)
[2018-12-28 15:49] VITALS: BP 132/81
[2018-12-28 19:30] VITALS: BP 141/86
[2018-12-28] MEDS: ZOLPIDEM TARTRATE 5 MG TABLET PO PRN (22:11)
[2018-12-28 23:15] VITALS: BP 129/75
[2018-12-29 05:10] VITALS: BP 118/76
[2018-12-29] MEDS: CARBIDOPA/LEVODOPA 25-250 MG TABLET PO SCH ×5 (05:13→21:38)
[2018-12-29] MEDS: CHOLECALCIFEROL (VIT D3) 1,000 UNITS TABLET PO SCH (08:57)
[2018-12-29] MEDS: DIAZEPAM 5 MG TABLET PO SCH ×3 (08:57→20:11)
[2018-12-29] MEDS: ASPIRIN 81 MG EC TABLET PO SCH (08:57)
[2018-12-29] MEDS: FAMOTIDINE 20 MG TABLET PO SCH (08:57)
[2018-12-29] MEDS: BACLOFEN 10 MG TABLET PO SCH ×4 (08:57→20:11)
[2018-12-29] MEDS: MULTIVITAMINS, THERAPEUTIC TABLET PO SCH (08:57)
[2018-12-29] MEDS: HEPARIN SODIUM,PORCINE 5,000 UNITS/ML VIAL SQ SCH ×2 (08:58→20:10)
[2018-12-29] MEDS: ASCORBIC ACID 500 MG TABLET PO SCH (08:58)
[2018-12-29 09:01] VITALS: BP 121/69
[2018-12-29 11:10] VITALS: BP 133/78
[2018-12-29] MEDS: OxyCODONE HCL/ACETAMINOPHEN 5-325 MG TABLET PO PRN ×2 (14:14→20:10)
[2018-12-29 15:13] VITALS: BP_SYST 110; BP_DIAS 73; BP_DIAS 86
[2018-12-29 19:45] VITALS: BP 101/55
[2018-12-29] MEDS: ZOLPIDEM TARTRATE 5 MG TABLET PO PRN (21:38)
[2018-12-30 04:21] VITALS: BP 137/84
[2018-12-30] MEDS: CARBIDOPA/LEVODOPA 25-250 MG TABLET PO SCH ×5 (05:09→22:05)
[2018-12-30] MEDS: OxyCODONE HCL/ACETAMINOPHEN 5-325 MG TABLET PO PRN (05:10)
[2018-12-30 07:20] VITALS: BP 107/75
[2018-12-30] MEDS: BACLOFEN 10 MG TABLET PO SCH ×4 (08:40→20:37)
[2018-12-30] MEDS: DIAZEPAM 5 MG TABLET PO SCH ×3 (08:40→20:38)
[2018-12-30] MEDS: CHOLECALCIFEROL (VIT D3) 1,000 UNITS TABLET PO SCH (08:40)
[2018-12-30] MEDS: SIMETHICONE 80 MG CHEWABLE TABLET PO PRN (08:40)
[2018-12-30] MEDS: FAMOTIDINE 20 MG TABLET PO SCH (08:40)
[2018-12-30] MEDS: ASCORBIC ACID 500 MG TABLET PO SCH (08:41)
[2018-12-30] MEDS: HEPARIN SODIUM,PORCINE 5,000 UNITS/ML VIAL SQ SCH ×2 (08:41→20:37)
[2018-12-30] MEDS: MULTIVITAMINS, THERAPEUTIC TABLET PO SCH (08:41)
[2018-12-30] MEDS: ASPIRIN 81 MG EC TABLET PO SCH (08:41)
[2018-12-30 11:27] VITALS: BP 118/78
[2018-12-30 15:49] VITALS: BP 116/76
[2018-12-30 19:36] VITALS: BP 120/75
[2018-12-30] MEDS: ZOLPIDEM TARTRATE 5 MG TABLET PO PRN (22:05)
[2018-12-31 00:06] VITALS: BP 123/78
[2018-12-31 04:06] VITALS: BP 118/71
[2018-12-31] MEDS: CARBIDOPA/LEVODOPA 25-250 MG TABLET PO SCH ×5 (05:55→22:18)
[2018-12-31] MEDS: OxyCODONE HCL/ACETAMINOPHEN 5-325 MG TABLET PO PRN ×2 (06:34→20:08)
[2018-12-31 07:20] VITALS: BP 120/76
[2018-12-31] MEDS: MULTIVITAMINS, THERAPEUTIC TABLET PO SCH (09:54)
[2018-12-31] MEDS: ASCORBIC ACID 500 MG TABLET PO SCH (09:54)
[2018-12-31] MEDS: FAMOTIDINE 20 MG TABLET PO SCH (09:55)
[2018-12-31] MEDS: BACLOFEN 10 MG TABLET PO SCH ×4 (09:55→20:08)
[2018-12-31] MEDS: ASPIRIN 81 MG EC TABLET PO SCH (09:55)
[2018-12-31] MEDS: HEPARIN SODIUM,PORCINE 5,000 UNITS/ML VIAL SQ SCH ×2 (09:55→20:08)
[2018-12-31] MEDS: DIAZEPAM 5 MG TABLET PO SCH ×3 (09:55→20:08)
[2018-12-31] MEDS: CHOLECALCIFEROL (VIT D3) 1,000 UNITS TABLET PO SCH (09:55)
[2018-12-31 11:39] VITALS: BP 124/78
[2018-12-31 15:00] VITALS: BP 126/72
[2018-12-31 19:00] VITALS: BP 96/60
[2018-12-31] MEDS: ZOLPIDEM TARTRATE 5 MG TABLET PO PRN (22:18)
[2019-01-01] MEDS: OxyCODONE HCL/ACETAMINOPHEN 5-325 MG TABLET PO PRN ×3 (00:38→15:18)
[2019-01-01 04:00] VITALS: BP 129/75
[2019-01-01] MEDS: CARBIDOPA/LEVODOPA 25-250 MG TABLET PO SCH ×5 (05:53→23:11)
[2019-01-01 07:00] VITALS: BP 133/80
[2019-01-01] MEDS: ASCORBIC ACID 500 MG TABLET PO SCH (08:34)
[2019-01-01] MEDS: MULTIVITAMINS, THERAPEUTIC TABLET PO SCH (08:34)
[2019-01-01] MEDS: CHOLECALCIFEROL (VIT D3) 1,000 UNITS TABLET PO SCH (08:34)
[2019-01-01] MEDS: FAMOTIDINE 20 MG TABLET PO SCH (08:34)
[2019-01-01] MEDS: ASPIRIN 81 MG EC TABLET PO SCH (08:34)
[2019-01-01] MEDS: BACLOFEN 10 MG TABLET PO SCH ×4 (08:34→22:23)
[2019-01-01] MEDS: DIAZEPAM 5 MG TABLET PO SCH ×3 (08:35→22:23)
[2019-01-01] MEDS: HEPARIN SODIUM,PORCINE 5,000 UNITS/ML VIAL SQ SCH ×2 (10:45→21:00)
[2019-01-01 11:45] VITALS: BP 115/62
[2019-01-01] MEDS: MAGNESIUM HYDROXIDE SUSPENSION 30 ML UDCUP PO PRN (15:49)
[2019-01-01 16:49] VITALS: BP 100/63
[2019-01-01 20:27] VITALS: BP 144/93
[2019-01-01] MEDS: ZOLPIDEM TARTRATE 5 MG TABLET PO PRN (23:11)
[2019-01-02] VITALS (7 sets, daily range): BP systolic 111–136; BP diastolic 70–84
[2019-01-02] MEDS: OxyCODONE HCL/ACETAMINOPHEN 5-325 MG TABLET PO PRN ×4 (00:31→20:44)
[2019-01-02] MEDS: CARBIDOPA/LEVODOPA 25-250 MG TABLET PO SCH ×5 (05:56→20:43)
[2019-01-02] MEDS: FAMOTIDINE 20 MG TABLET PO SCH (09:24)
[2019-01-02] MEDS: SIMETHICONE 80 MG CHEWABLE TABLET PO PRN (09:24)
[2019-01-02] MEDS: CHOLECALCIFEROL (VIT D3) 1,000 UNITS TABLET PO SCH (09:24)
[2019-01-02] MEDS: BACLOFEN 10 MG TABLET PO SCH ×4 (09:24→20:43)
[2019-01-02] MEDS: ASPIRIN 81 MG EC TABLET PO SCH (09:24)
[2019-01-02] MEDS: MULTIVITAMINS, THERAPEUTIC TABLET PO SCH (09:24)
[2019-01-02] MEDS: HEPARIN SODIUM,PORCINE 5,000 UNITS/ML VIAL SQ SCH ×2 (09:25→20:43)
[2019-01-02] MEDS: ASCORBIC ACID 500 MG TABLET PO SCH (09:25)
[2019-01-02] MEDS: DIAZEPAM 10 MG TABLET PO SCH ×3 (11:55→20:42)
[2019-01-03 00:11] VITALS: BP 131/80
[2019-01-03] MEDS: OxyCODONE HCL/ACETAMINOPHEN 5-325 MG TABLET PO PRN ×2 (03:08→20:46)
[2019-01-03] MEDS: CARBIDOPA/LEVODOPA 25-250 MG TABLET PO SCH ×5 (06:29→20:46)
[2019-01-03 08:02] VITALS: BP 155/95
[2019-01-03] MEDS: ASPIRIN 81 MG EC TABLET PO SCH (08:07)
[2019-01-03] MEDS: BACLOFEN 10 MG TABLET PO SCH ×4 (08:07→20:46)
[2019-01-03] MEDS: MULTIVITAMINS, THERAPEUTIC TABLET PO SCH (08:08)
[2019-01-03] MEDS: HEPARIN SODIUM,PORCINE 5,000 UNITS/ML VIAL SQ SCH ×2 (08:08→20:47)
[2019-01-03] MEDS: FAMOTIDINE 20 MG TABLET PO SCH (08:08)
[2019-01-03] MEDS: CHOLECALCIFEROL (VIT D3) 1,000 UNITS TABLET PO SCH (08:08)
[2019-01-03] MEDS: DIAZEPAM 10 MG TABLET PO SCH ×3 (08:08→20:46)
[2019-01-03] MEDS: ASCORBIC ACID 500 MG TABLET PO SCH (08:08)
[2019-01-03 11:40] VITALS: BP 145/90
[2019-01-03 15:59] VITALS: BP 139/64
[2019-01-03 19:45] VITALS: BP 110/60
[2019-01-04] MEDS: CARBIDOPA/LEVODOPA 25-250 MG TABLET PO SCH ×5 (06:17→20:47)
[2019-01-04 08:05] VITALS: BP 125/74
[2019-01-04] MEDS: FAMOTIDINE 20 MG TABLET PO SCH (09:29)
[2019-01-04] MEDS: ASCORBIC ACID 500 MG TABLET PO SCH (09:29)
[2019-01-04] MEDS: MULTIVITAMINS, THERAPEUTIC TABLET PO SCH (09:29)
[2019-01-04] MEDS: DIAZEPAM 10 MG TABLET PO SCH ×3 (09:30→20:47)
[2019-01-04] MEDS: ASPIRIN 81 MG EC TABLET PO SCH (09:30)
[2019-01-04] MEDS: HEPARIN SODIUM,PORCINE 5,000 UNITS/ML VIAL SQ SCH ×2 (09:30→20:46)
[2019-01-04] MEDS: CHOLECALCIFEROL (VIT D3) 1,000 UNITS TABLET PO SCH (09:30)
[2019-01-04] MEDS: BACLOFEN 10 MG TABLET PO SCH ×4 (09:30→20:47)
[2019-01-04 13:30] VITALS: BP 101/65
[2019-01-04 16:15] VITALS: BP 156/88
[2019-01-04] MEDS: MAGNESIUM HYDROXIDE SUSPENSION 30 ML UDCUP PO PRN (17:01)
[2019-01-04 20:06] VITALS: BP 128/80
[2019-01-04 23:12] VITALS: BP 123/76
[2019-01-04] MEDS: ZOLPIDEM TARTRATE 5 MG TABLET PO PRN (23:14)
[2019-01-04] MEDS: OxyCODONE HCL/ACETAMINOPHEN 5-325 MG TABLET PO PRN (23:15)
[2019-01-05 04:26] VITALS: BP 121/78
[2019-01-05] MEDS: CARBIDOPA/LEVODOPA 25-250 MG TABLET PO SCH ×3 (05:41→13:36)
[2019-01-05 07:08] VITALS: BP 129/77
[2019-01-05] MEDS: ASCORBIC ACID 500 MG TABLET PO SCH (08:01)
[2019-01-05] MEDS: CHOLECALCIFEROL (VIT D3) 1,000 UNITS TABLET PO SCH (08:01)
[2019-01-05] MEDS: DIAZEPAM 10 MG TABLET PO SCH ×2 (08:02→15:55)
[2019-01-05] MEDS: BACLOFEN 10 MG TABLET PO SCH ×3 (08:02→15:55)
[2019-01-05] MEDS: FAMOTIDINE 20 MG TABLET PO SCH (08:02)
[2019-01-05] MEDS: ASPIRIN 81 MG EC TABLET PO SCH (08:02)
[2019-01-05] MEDS: HEPARIN SODIUM,PORCINE 5,000 UNITS/ML VIAL SQ SCH (08:06)
[2019-01-05] MEDS: MULTIVITAMINS, THERAPEUTIC TABLET PO SCH (10:19)
[2019-01-05] MEDS: OxyCODONE HCL/ACETAMINOPHEN 5-325 MG TABLET PO PRN (10:22)
[2019-01-05 11:04] VITALS: BP 94/43
[2019-01-05 15:28] VITALS: BP 99/58
== END 2019-01-05 17:18 | DRG 421 ==
LOC: EMS 16:17 → 5N 21:54 → 4E 01-02 14:56
PROVIDERS: ADMIT Internal Medicine; ATTEND Internal Medicine
DX: R62.7 Adult failure to thrive (principal); E43 Unspecified severe protein-calorie malnutrition; G20 Parkinson's disease; R53.2 Functional quadriplegia; M62.422 Contracture of muscle, left upper arm; E55.9 Vitamin D deficiency, unspecified; K59.00 Constipation, unspecified; K21.9 Gastro-esophageal reflux disease without esophagitis; F29 Unspecified psychosis not due to a substance or known physiological condition; I10 Essential (primary) hypertension; Z59.0 Homelessness; B19.20 Unspecified viral hepatitis C without hepatic coma; Z91.19 Patient's noncompliance with other medical treatment and regimen; Z68.21 Body mass index [BMI] 21.0-21.9, adult
CPT/HCPCS: 83735; 84100; 87081; 93005; G0378; J1644; J7030